=== PATIENT | female | born 1940 | race Caucasian/White ===

== ENCOUNTER 2017-09-01 11:46 | Inpatient (IN) | payer OTHER, MEDICARE ==
[~2017-09-01] VITALS: Ht 160 cm; Wt 96.8 kg
--- NOTE | 2017-09-01 12:52 | ED DYSPNEA/ASTHMA COMPLAINT ---
History of Present Illness General Chief Complaint: Dyspnea (COPD, CHF, Other) Stated Complaint: SOB Source: patient, family, old records Exam Limitations: no limitations Vital Signs & Intake/Output Vital Signs & Intake/Output Vital Signs Date Time Temp Pulse Resp B/P B/P Pulse O2 O2 Flow FiO2 Mean Ox Delivery Rate 09/01 1441 97 Nasal 2.0L Cannula 09/01 1415 69 20 140/68 96 Room Air 09/01 1216 98.8 73 20 144/74 94 Room Air Allergies Coded Allergies: NO KNOWN ALLERGIES (12/22/10) Triage Note: SIB DR HINTON FOR SOB ON AND OFF X 1 WEEK. BLE EDEMA WHICH IS WORSE TODAY. PT THINKS SHE HAS A UTI ALSO. PT HAS HX OF DOUBLE BYPASS X 2 WITH STENTS. STATES SHE WEARS A NTG PATCH 12 HRS ON, 12 HRS OFF Triage Nurses Notes Reviewed? yes Onset: Gradual Duration: day(s): Timing: recent history Severity: moderate Activities at Onset: activity HPI: 76YO FEMALE with hx of CAD s/p CABG on Brillinta, CHF, HTN presents to ED sent in by Dr. Mcguire for dyspnea x 1 week. Patient states that dyspnea is worse with exertion, after she walks down the stairs she immediately has to sit down in the chair. Symptoms are also worse when she talks or when she tries to lay flat. The patient uses inclined bed with 3 pillows at baseline. Patient states that for the past 2 nights she has been unable to sleep due to her dyspnea. Patient also reports increasing swelling to bilateral lower extremities. Patient took extra Lasix dose last night however no relief of her symptoms. Patient reports dysuria beginning this morning. Patient had a recent cardiac catheterization in May and it was found that she had a vessel 70% occluded however no stent was placed. Patient has been using Nitro patch 12 hours on/12 hours off since stenting. Patient reports no chest pain at that time, no chest pain currently. Patient states that over the past few weeks she has had a "head cold". She reports dry cough and congestion. The patient denies fevers, chills , abdominal pain, vomiting, hemoptysis. (Pili FIORE,Rea Covington) Reconcile Medications Allopurinol 300 MG TABLET 1 TAB PO DAILY GOUT (Reported) Amlodipine Besylate (Norvasc) 10 MG TABLET 1 TAB PO DAILY HEART (Reported) Aspirin (Aspirin*) 81 MG TAB.CHEW 1 TAB PO DAILY HEART HEALTH (Reported) Atorvastatin Calcium (Lipitor) 20 MG TABLET 1 TAB PO QPM CHOLESTEROL ( Reported) Cholecalciferol (Vitamin D3) (Vitamin D) 2,000 UNIT TABLET 2 TAB PO DAILY VITAMIN SUPPORT (Reported) Cyanocobalamin (Vitamin B-12) 1,000 MCG TABLET 1 TAB PO DAILY VITAMIN SUPPORT (Reported) Furosemide 20 MG TABLET 1 TAB PO DAILY WATER RETENTION (Reported) Gabapentin 300 MG CAPSULE 1 CAP PO BID UNKNOWN (Reported) Hydrocodone/Acetaminophen (Hydrocodon-Acetaminoph 7.5-325) 7.5 MG-325 MG TABLET 1 TAB PO TIDPRN PRN PAIN (Reported) Loperamide HCl (Imodium A-D) 2 MG TABLET 1 CAP PO DAILY PRN GI (Reported) Metformin HCl 1,000 MG TABLET 1 TAB PO BID DIABETES (Reported) Metoprolol Tartrate 100 MG TABLET 1 TAB PO BID HEART (Reported) Nitroglycerin (Nitrostat) 0.4 MG TAB.SUBL 1 TAB SL DAILY PRN HEART (Reported) 1st sign of attack; may repeat every 5 minutes until relief; if pain persists after 3 tablets in 15 minutes, prompt medical att Nitroglycerin (Minitran) 0.4 MG/HOUR PATCH.TD24 1 PAT TOP DAILY HEART ( Reported) [place]-3 Fatty Acids/Fish Oil (Fish Oil 1,000 MG Capsule) 340 MG-1,000 MG CAPSULE 2 CAP PO DAILY SUPPLEMENT (Reported) Ramipril (Altace) 10 MG CAPSULE 1 CAP PO BID UNKNOWN (Reported) Ticagrelor (Brilinta) 90 MG TABLET 1 TAB PO BID BLOOD THINNER (Reported) (Ade LOPEZ,Nacho Dennis) Past History Travel History Traveled to [place] past 21 day No Medical History Any Pertinent Medical History? 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 No (Pili FIORE,Rea Covington) Review of Systems Review of Systems Constitutional: Reports: no symptoms. EENTM: Reports: see HPI. Respiratory: Reports: see HPI. Cardiovascular: Reports: see HPI. GI: Reports: no symptoms. Genitourinary: Reports: see HPI. Musculoskeletal: Reports: no symptoms. Skin: Reports: no symptoms. Neurological/Psychological: Reports: no symptoms. Hematologic/Endocrine: Reports: no symptoms. Immunologic/Allergic: Reports: no symptoms. All Other Systems: Reviewed and Negative (Pili FIORE,Rea Covington) Physical Exam Physical Exam General Appearance: well developed/nourished, no apparent distress, alert, awake Head: atraumatic, normal appearance Eyes: Bilateral: normal appearance. Ears, Nose, Throat: hearing grossly normal Neck: normal inspection, supple, full range of motion Respiratory: mildly diminished breath sounds posterior lung shell Cardiovascular: regular rate/rhythm, normal peripheral pulses Peripheral Pulses: 2+ radial (R), 2+ radial (L) Gastrointestinal: normal bowel sounds, soft, non-tender, no organomegaly Extremities: 2-3+ pitting edema bilateral lower extremities Neurologic/Psych: awake, alert, oriented x 3 Skin: intact, normal color, warm/dry Core Measures ACS in differential dx? Yes CVA/TIA Diagnosis No Sepsis Present: No Sepsis Focused Exam Completed? No (Pili FIORE,Rea Covington) Progress Differential Diagnosis: asthma, AMI, bronchitis, CHF, COPD, pericarditis, pulmonary embolism, pneumonia, pneumothorax, unstable angina Diagnostic Imaging: Viewed by Me: Radiology Read. Discussed w/RAD: Radiology Read. CXR Impression: PATIENT: NIELS SYLVESTER PRESENT AGE : 76 PATIENT ACCOUNT NO: [id number] : 41 LOCATION: [facility] ORDERING PHYSICIAN: Rea FIORE SERVICE DATE: 09/01/17 EXAM TYPE: RAD - XRY-CHEST XRAY, TWO VIEWS PA AND LATERAL CHEST RADIOGRAPH CLINICAL INFORMATION: Dyspnea COMPARISON: Chest x-ray 07/22/2011 TECHNIQUE: 2 views of the chest were obtained. FINDINGS: Median sternotomy wires and multiple surgical clips are again noted. Low lung volumes and central vascular congestion without overt edema. Lung bases are obscured by overlying soft tissues on the frontal view with no true airspace disease seen on the lateral view. No pneumothorax. Cardiac silhouette is enlarged and unchanged. IMPRESSION: Lung bases are obscured by overlying soft tissue on the frontal view with no definite focal airspace opacity seen on the lateral view. Low lung volumes and central vascular congestion without overt edema. Stable enlargement of the cardiac silhouette and chronic postsurgical changes. DICTATED BY: Nacho Dye MD DATE/TIME DICTATED :09/01/171403 MASTER ESTHETICIAN:LINDA DATE/TIME TRANSCRIBED:09/01/171403 CONFIDENTIAL, DO NOT COPY WITHOUT APPROPRIATE AUTHORIZATION. < Electronically signed in Other Vendor System> SIGNED BY: Nacho Dye MD 09/01/17 1411 Initial ED EKG: sinus rhythm @72bpm, inverted t waves lateral leads (Pili FIORE,Rea Covington) Plan of Care: Orders Procedure Date/time Status Heart Healthy Diet 09/01 D Active URINALYSIS 09/01 1242 Complete TROPONIN LEVEL 09/01 1210 Complete COMPREHENSIVE METABOLIC PANEL 09/01 1210 Complete CBC WITHOUT DIFFERENTIAL 09/01 1209 Complete B-TYPE NATRIURETIC PEP (BNP) 09/01 121 Complete EKG 09/01 1210 Active Laboratory Tests 09/01/17 1332: Anion Gap 17 H, Estimated GFR > 60, BUN/Creatinine Ratio 17.1, Glucose 107 H, Calcium 9.9, Total Bilirubin 1.2, AST 18, ALT 21, Alkaline Phosphatase 109, Troponin I < 0.01, Hae-K-Qreknjihvlh Pept 1350 H, Total Protein 8.2, Albumin 4.6, Globulin 3.6, Albumin/Globulin Ratio 1.3, CBC w Diff NO MAN DIFF REQ, RBC 3.58 L, MCV 92.2, MCH 29.9, MCHC 32.4 L, RDW 16.1 H, MPV 8.9, Gran % 78.0 H, Lymphocytes % 14.9 L, Monocytes % 5.7, Eosinophils % 0.7, Basophils % 0.7, Absolute Granulocytes 9.5 H, Absolute Lymphocytes 1.8, Absolute Monocytes 0.7 H, Absolute Eosinophils 0.1, Absolute Basophils 0.1 09/01/17 1253: Urine Color YEL, Urine Clarity CLEAR, Urine pH 6.5, Ur Specific Snook 1.010, Urine Protein NEG, Urine Ketones NEG, Urine Nitrite NEG, Urine Bilirubin NEG, Urine Urobilinogen 0.2, Ur Leukocyte Esterase SMALL H, Ur Microscopic SEDIMENT EXAMINED, Urine WBC 5-10 H, Ur Epithelial Cells RARE, Urine Bacteria FEW H, Urine Hemoglobin NEG, Urine Glucose NEG Chest x-ray shows congestion however no significant edema. Patient's labs show mildly elevated BNP. The patient is ambulated her oxygen level desaturates to 70s. Patient is not on home O2. Based on these findings she will require hospital admission for IV Lasix. 3:07 PM - spoke with Dr. Mcguire regarding this patient, he agrees with plan for hospital admission and IV Lasix. Case management recommend follow admission. Patient requires cardiology consult , telemetry monitoring, repeat labs, supplemental oxygen, IV Lasix. Dr. Booker present to see and evaluate the patient. Dr. Booker spoke with Dr. Butcher regarding telemetry admisison. (Pili FIORE,Rea Covington) Comments: 09/01/2017 1:52:05 PM patient's nurse has reported to me that the patient went to the bathroom without her oxygen and upon return was severely dyspneic with an oxygen saturation 79%. 09/01/2017 3:31:08 PM Patient's case discussed with Dr. Butcher. (Ade LOPEZ,Nacho Dennis) Departure Departure Disposition: STILL A PATIENT Condition: Stable Clinical Impression Primary Impression: CHF exacerbation Qualifiers: Heart failure type: unspecified Qualified Code: I50.9 - Heart failure, unspecified Referrals: Ari Gr MD (PCP/Family) Departure Forms: Customer Survey General Discharge Information Admission Note Spoke With: Saray Butcher MD Documentation of Exam: Documentation of any treatments & extenuating circumstances including Concerns Regarding Discharge (functional status, medication knowledge or non-compliance, living conditions, etc.) that warrant an admission rather than observation: [ Acute CHF exacerbation requiring IV Lasix, cardiology consult, repeat labs, telemetry monitoring, desaturation with ambulation requiring supplemental oxygen , premature discharge medically unsafe] (Rea Cutler) PA/OUTBOARD MOTOR TESTER Co-Sign Statement Statement: ED Attending supervision documentation- [X] I saw and evaluated the patient. I have also reviewed all the pertinent lab results and diagnostic results. I agree with the findings and the plan of care as documented in the PA's/OUTBOARD MOTOR TESTER's documentation. Patient presents for evaluation of worsening shortness of breath over the past few nights. Physical examination reveals good bilateral air entry and no wheezes rales or rhonchi. Patient does have 2+ bilateral lower extremity pitting edema. [] I have reviewed the ED Record and agree with the PA's/OUTBOARD MOTOR TESTER's documentation. [] Additions or exceptions (if any) to the PAs/OUTBOARD MOTOR TESTER's note and plan are summarized below: [] (Nacho Booker MD) Critical Care Note Critical Care Note Critical Care Time: 30-74 min (Nacho Booker MD)
[2017-09-01] MEDS ORDERED: METOPROLOL TAR100 M1 PO (13:13)
[2017-09-01] MEDS ORDERED: ALTACE10 M2 PO (13:13)
[2017-09-01] MEDS ORDERED: BRILINTA90 M1 PO (13:13)
[2017-09-01] MEDS ORDERED: METFORMIN HCL1000 M1 PO (13:14)
[2017-09-01] MEDS ORDERED: LIPITOR20 M2 PO (13:14)
[2017-09-01] MEDS ORDERED: NORVASC10 M1 PO (13:14)
[2017-09-01] MEDS ORDERED: ASPIRIN81 M4 PO (13:15)
[2017-09-01] MEDS ORDERED: FUROSEMIDE20 M1 PO (13:15)
[2017-09-01] MEDS ORDERED: ALLOPURINOL300 M1 PO (13:15)
[2017-09-01] MEDS ORDERED: NITROSTAT0.4 M1 SL (13:16)
[2017-09-01] MEDS ORDERED: MINITRAN1 EAC2 TOP (13:16)
[2017-09-01] MEDS ORDERED: VITAMIN B-121000 MC3 PO (13:17)
[2017-09-01] MEDS ORDERED: FISH OIL 1,0001 EACH PO (13:17)
[2017-09-01] MEDS ORDERED: VITAMIN D2000 UNI1 PO (13:18)
[2017-09-01] MEDS ORDERED: GABAPENTIN300 M2 PO (13:18)
[2017-09-01] MEDS ORDERED: IMODIUM A-D2 M1 PO (13:19)
[2017-09-01] MEDS ORDERED: HYDROCODON-ACE1 EAC3 PO (13:19)
[2017-09-01 13:45] LABS: ABSOLUTE BASOPHIL COUNT 0.1 /CUMM (0.0-0.2); ABSOLUTE EOSINOPHIL COUNT 0.1 /CUMM (0.0-0.7); ABSOLUTE GRANULOCYTE CT 9.5 /CUMM (1.4-6.5); ABSOLUTE LYMPH COUNT 1.8 /CUMM (1.2-3.4); ABSOLUTE MONOCYTE COUNT 0.7 /CUMM (0.10-0.60); BASOPHIL % 0.7 % (0.0-2.0); EOSINOPHIL % 0.7 % (0-5); MEAN CORPUSCULAR HGB 29.9 PG (27.0-31.0); MEAN CORPUSCULAR HGB CONC 32.4 G/DL (33.0-37.0); MEAN CORPUSCULAR VOLUME 92.2 FL (81.0-99.0); MEAN PLATELET VOLUME 8.9 FL (7.4-10.4); PLATELET COUNT 323 /CUMM (130-400); RBC DISTRIBUTION WIDTH 16.1 % (11.5-14.5); RED BLOOD CELL CT 3.58 /CUMM (4.20-5.40); WHITE BLOOD CELL COUNT 12.2 /CUMM (4.8-10.8)
--- NOTE | 2017-09-01 14:11 | RADIOLOGY REPORT ---
PA AND LATERAL CHEST RADIOGRAPH CLINICAL INFORMATION: Dyspnea COMPARISON: Chest x-ray 07/22/2011 TECHNIQUE: 2 views of the chest were obtained. FINDINGS: Median sternotomy wires and multiple surgical clips are again noted. Low lung volumes and central vascular congestion without overt edema. Lung bases are obscured by overlying soft tissues on the frontal view with no true airspace disease seen on the lateral view. No pneumothorax. Cardiac silhouette is enlarged and unchanged. IMPRESSION: Lung bases are obscured by overlying soft tissue on the frontal view with no definite focal airspace opacity seen on the lateral view. Low lung volumes and central vascular congestion without overt edema. Stable enlargement of the cardiac silhouette and chronic postsurgical changes.
--- NOTE | 2017-09-01 15:37 | History & Physical ---
Cabrera Fraser MD 09/01/17 1536: General Information and HPI MD Statement: I have seen and personally examined NIELS SYLVESTER and documented this H&P. The patient is a 76 year old F who presented with a patient stated chief complaint of [dyspnea on exertion, lower extremity edema]. Source of Information: patient, family Exam Limitations: no limitations History of Present Illness: Patient is a 76-year-old female with a PMH significant for CAD status post multiple CABGs and PCIs with stent placement, significant cardiac family history , HTN, IBS, chronic back pain, borderline diabetes mellitus, who presents complaining of worsening dyspnea on exertion, and leg swelling. Patient reports that approximately one week before Easter she was having symptoms indicative of a URI with nonproductive cough, rhinorrhea and postnasal drip. The symptoms abated however in the ensuing 2 weeks she noticed significant fatigue, worsening dyspnea on exertion progressing to dyspnea at rest. Chest noted approximately 1 week of worsening of her chronic lower extremity edema for which she is on Lasix , she took an extra dose of Lasix which did not relieve this. Patient's dyspnea progressed to the point that she could not walk up a flight of stairs approximately one week ago and she has had episodes of PND and orthopnea, she normally sleeps on approximately 2-3 pillows however over the past couple of days she is needed to elevate the head of her bed and use multiple pillows. She has been unable to sleep due to shortness of breath over the past 2 days and was recommended to come to the ED by Dr. Mcguire's office. 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 Home Who Do You Live With? spouse Services at Home: None Primary Language: Fijian Smoking Status: Never Smoked ETOH Use: denies use Illicit Drug Use: denies illicit drug use Functional Ability ADLs Independent: dressing, eating, toileting, bathing. Ambulation: independent IADLs Independent: shopping, housework, finances, food prep, telephone, transportation , medication admin. Review of Systems Review of Systems Constitutional: Reports: weakness. Denies: chills, fever. EENTM: Reports: no symptoms. Cardiovascular: Reports: orthopena, peripheral edema. Denies: chest pain, palpitations. Respiratory: Reports: short of breath. Denies: cough, sputum production, wheezing. GI: Reports: diarrhea (chronic). Genitourinary: Reports: no symptoms. Musculoskeletal: Reports: no symptoms. Skin: Reports: no symptoms. Neurological/Psychological: Reports: no symptoms. Exam & Diagnostic Data Last 24 Hrs of Vital Signs/I&O Vital Signs Date Time Temp Pulse Resp B/P B/P Pulse O2 O2 Flow FiO2 Mean Ox Delivery Rate 09/01 1441 97 Nasal 2.0L Cannula 09/01 1415 69 20 140/68 96 Room Air 09/01 1216 98.8 73 20 144/74 94 Room Air Intake & Output 09/01 1600 09/01 0800 09/01 0000 Intake Total Output Total 150 Balance -150 Output, Urine 150 Patient 220 lb Weight Weight Reported by Patient Measurement Method Physical Exam General Appearance Alert, Oriented X3, Cooperative, No Acute Distress Skin Temp/Moisture Exam: Warm/Dry Neck JVD + Cardiovascular Regular Rate, Normal S1, Normal S2 Lungs minimal crackles at the R lung base Abdomen Normal Bowel Sounds, Soft, No Tenderness Neurological Normal Speech, Sensation Intact, Cranial Nerves 3-12 NL Extremities 1+ pitting edema of the distal LEs bilaterally Vascular Normal Pulses, Pulses Symmetrical Last 24 Hrs of Labs/Carlo: Laboratory Tests 09/01/17 1332: Anion Gap 17 H, Estimated GFR > 60, BUN/Creatinine Ratio 17.1, Glucose 107 H, Hemoglobin A1c Pending, Calcium 9.9, Magnesium 1.4 L, Total Bilirubin 1.2, AST 18, ALT 21, Alkaline Phosphatase 109, Troponin I < 0.01, Cva-L-Makfzmndczu Pept 1350 H, Total Protein 8.2, Albumin 4.6, Globulin 3.6, Albumin/Globulin Ratio 1.3, TSH 1.150, D-Dimer High Sensitivty 1032 H, CBC w Diff NO MAN DIFF REQ, RBC 3.58 L, MCV 92.2, MCH 29.9, MCHC 32.4 L, RDW 16.1 H, MPV 8.9, Gran % 78.0 H, Lymphocytes % 14.9 L, Monocytes % 5.7, Eosinophils % 0.7, Basophils % 0.7, Absolute Granulocytes 9.5 H, Absolute Lymphocytes 1.8, Absolute Monocytes 0.7 H, Absolute Eosinophils 0.1, Absolute Basophils 0.1 09/01/17 1253: Urine Color YEL, Urine Clarity CLEAR, Urine pH 6.5, Ur Specific [place] 1.010, Urine Protein NEG, Urine Ketones NEG, Urine Nitrite NEG, Urine Bilirubin NEG, Urine Urobilinogen 0.2, Ur Leukocyte Esterase SMALL H, Ur Microscopic SEDIMENT EXAMINED, Urine WBC 5-10 H, Ur Epithelial Cells RARE, Urine Bacteria FEW H, Urine Hemoglobin NEG, Urine Glucose NEG Diagnostic Data EKG Results HR 72, inverted T waves in multiple leads no previous EKG for comparison, QTc 430 CXR Results Median sternotomy wires and multiple surgical clips are again noted. Low lung volumes and central vascular congestion without overt edema. Lung bases are obscured by overlying soft tissues on the frontal view with no true airspace disease seen on the lateral view. No pneumothorax. Cardiac silhouette is enlarged and unchanged. IMPRESSION: Lung bases are obscured by overlying soft tissue on the frontal view with no definite focal airspace opacity seen on the lateral view. Low lung volumes and central vascular congestion without overt edema. Stable enlargement of the cardiac silhouette and chronic postsurgical changes. Assessment/Plan Assessment: Patient is a 76-year-old female with a PMH significant for CAD status post multiple CABGs and PCIs with stent placement, significant cardiac family history , HTN, IBS, chronic back pain, borderline diabetes mellitus, who presents complaining of worsening dyspnea on exertion, and leg swelling. Vital signs on presentation: T 98.8, lipase 73, RR 20, BP 144/74, pulse ox 94% on room air, patient desaturated to 92% on room air and was started on supplemental O2 nasal cannula and subsequently improved to 96% Labs: WBC 12.2, H/H 10.7/33, platelets 53, magnesium 1.4, potassium 3.7, proBNP 1350, troponin <0.01, d-dimer 1032 UA: Small LE, WBC and bacteria present Problem list #Dyspnea, possible CHF exacerbation, PE cannot be ruled out #Hypomagnesemia, hypokalemia #Inverted T waves on EKG, no old EKG for comparison #Chronic medical problems Plan -Admit to telemetry -Continuous telemetry monitoring -Rule out ACS with serial troponins and EKGs -IV Lasix -Strict I's and O's and daily weights -Lower extremity Doppler and CTA chest to rule out DVT/PE -Wean off of supplemental O2 as tolerated -Cardiology consult placed with Dr. Mcguire, will follow up recommendations -Continue home medications Diet: Diabetic diet, sodium restriction DVT prophylaxis #subcutaneous heparin CODE STATUS: Full code As Ranked By This Provider Problem List: 1. Dyspnea Core Measures/Misc (02/06) Acute Coronary Syndrome ACS Diagnosis: No Congestive Heart Failure Congestive Heart Failure Diagnosis Yes Cerebrovascular Accident CVA/TIA Diagnosis: No VTE (View Protocol) VTE Risk Factors Age>40 No Mechanical VTE Prophylaxis d/t N/A MechProphylax Ordered No VTE Pharm Prophylaxis d/t NA PharmProphylax ordered Sepsis (View protocol) Sepsis Present: No Loni LOPEZ,[facility] 09/01/17 1543: General Information and HPI Allergies/Medications Home Med list Allopurinol 300 MG TABLET 1 TAB PO DAILY GOUT (Reported) Amlodipine Besylate (Norvasc) 10 MG TABLET 1 TAB PO DAILY HEART (Reported) Aspirin (Aspirin*) 81 MG TAB.CHEW 1 TAB PO DAILY HEART HEALTH (Reported) Atorvastatin Calcium (Lipitor) 20 MG TABLET 1 TAB PO QPM CHOLESTEROL ( Reported) Cholecalciferol (Vitamin D3) (Vitamin D) 2,000 UNIT TABLET 2 TAB PO DAILY VITAMIN SUPPORT (Reported) Cyanocobalamin (Vitamin B-12) 1,000 MCG TABLET 1 TAB PO DAILY VITAMIN SUPPORT (Reported) Furosemide 40 MG TABLET 1 TAB PO BID CHF Gabapentin 300 MG CAPSULE 1 CAP PO BID UNKNOWN (Reported) Hydrocodone/Acetaminophen (Hydrocodon-Acetaminoph 7.5-325) 7.5 MG-325 MG TABLET 1 TAB PO TIDPRN PRN PAIN (Reported) Loperamide HCl (Imodium A-D) 2 MG TABLET 1 CAP PO DAILY PRN GI (Reported) Metformin HCl 1,000 MG TABLET 1 TAB PO BID DIABETES (Reported) Metoprolol Tartrate 100 MG TABLET 1 TAB PO BID HEART (Reported) Nitroglycerin (Nitrostat) 0.4 MG TAB.SUBL 1 TAB SL DAILY PRN HEART (Reported) 1st sign of attack; may repeat every 5 minutes until relief; if pain persists after 3 tablets in 15 minutes, prompt medical att Nitroglycerin (Minitran) 0.4 MG/HOUR PATCH.TD24 1 PAT TOP DAILY HEART ( Reported) [place]-3 Fatty Acids/Fish Oil (Fish Oil 1,000 MG Capsule) 340 MG-1,000 MG CAPSULE 2 CAP PO DAILY SUPPLEMENT (Reported) Ramipril (Altace) 10 MG CAPSULE 1 CAP PO BID UNKNOWN (Reported) Ticagrelor (Brilinta) 90 MG TABLET 1 TAB PO BID BLOOD THINNER (Reported) Resident Review Statement Resident Statement: examined this patient, discussed with financial services internship Other Findings: Alec Sylvester is a 76-year-old female with a PMH significant for CAD status post multiple CABGs and PCIs with stent placement, significant cardiac family history , HTN, IBS, chronic back pain, borderline diabetes mellitus who presented to the emergency department complaining of worsening lower extremity edema and dyspnea on exertion which has continued to get worse over the last few weeks. Patient states that her symptoms began around the vacation. She may have been exposed to some ill contacts and endorsed an upper respiratory infection with rhinorrhea. Over the following 2 weeks she has continued to notice dyspnea on exertion as well as significant fatigue. Patient attempted to take an extra dose of Lasix however symptoms are not relieved. Dyspnea has progressively point that she is unable to walk up a flight of stairs. Patient is unable to lie flat and normally uses multiple pillows to prop her up. At the time of clinical interaction she denied any fever, chills, nausea, vomiting. Primary care physician is Ari Gr MD. Her gifted program teacher is Dr. Mcguire. R See Above Exam: T: 98.8. OK 73. RR 20 BP 144/74 94 % on RA General Appearance: well developed/nourished, no apparent distress, alert, awake Head: atraumatic, normal appearance Eyes: Bilateral: normal appearance. Ears, Nose, Throat: hearing grossly normal Neck: normal inspection, supple, full range of motion Respiratory: Distant breath sounds. Cardiovascular: regular rate/rhythm, normal peripheral pulses Peripheral Pulses: 2+ radial (R), 2+ radial (L) Gastrointestinal: normal bowel sounds, soft, non-tender, no organomegaly Extremities: 3+ pitting edema bilateral lower extremities Neurologic/Psych: awake, alert, oriented x 3 Skin: intact, normal color, warm/dry Labs As Above Imaging: As Above A/P Ms Sylvester is a 76-year-old female with a PMH significant for CAD status post multiple CABGs and PCIs with stent placement, significant cardiac family history , HTN, IBS, chronic back pain, borderline diabetes mellitus who presented to the emergency department complaining of worsening lower extremity edema and dyspnea on exertion which has continued to get worse over the last few weeks. Worsening ESTES and Hypoxia query CHF rule out PE. Electrolyte derangements. EKG changes. Chronic medical problems. Admit to telemetry. Monitor ins and outs and daily weights. Continue Lasix IV 20 mg twice a day. Monitor renal function daily. TSH, magnesium, lipid panel. Rule out ACS with serial roponins EKG. May consider repeating chest x-ray in a.m. Incentive spirometer. D-dimer. If elevated may consider ruling out any VTE (DVT and PE), with LE doppler and CTA Defer to Cardiology for Echocardiogram in a.m. Assess left ventricular function as well as estimated PA pressures. Consideration for stress test in a.m. as per cardiology. NovoLog sliding scale. Consistent carbohydrate diet, limit sodium DVT prophylaxis with Heparin Patient is a FC Guadalupe LOPEZ,[place] 09/01/17 1740: Attending MD Review Statement Attending Statement Attending MD Statement: examined this patient, discuss w/resident/PA/DECK BUILDER, agreed w/resident/PA/DECK BUILDER, discussed with family, reviewed EMR data (avail), discussed with nursing, amended to note Attending Assessment/Plan: Patient is a very pleasant 76-year-old female with an extensive cardiac history. She has coronary artery disease and is status post bypass surgery status post bypass surgery 3 in the past. The second procedure required revision the following year. She is also status post cardiac stent placement after the third procedure. Earlier this year she had another cardiac catheterization following a positive stress test. She was found to have obstructive disease that was not amenable to percutaneous intervention. Decision was made to manage patient medically. She denied having chest pain but admits to having dyspnea on exertion. She was prescribed nitroglycerin patch by her primary gifted program teacher with improvement of her symptoms. Patient reports that within the past few weeks her symptoms of shortness of breath particularly with exertion have persisted despite use of nitroglycerin patch. She has been getting progressively weaker. In the past week she has noted bilateral lower extremity swelling. She eventually came to the hospital for evaluation. She denies chest pain. Denies palpitations. Denies productive cough. She does admit to orthopnea. She admits to leg cramping but attributes this to chronic low back pain radiating down her legs secondary to degenerative joint disease. She apparently arrived in the emergency room hemodynamically stable. She was saturating 94-96% on room air. She was afebrile. ER notes show that she had diminished breath sounds in lung bases. Chest x-ray was done and showed low lung volumes and central vascular congestion without overt edema. Her BNP was elevated at 1350. She received Lasix 20 mg in the emergency room and patient reported feeling much better. At this point she was referred to the inpatient medical service after contacting her gifted program teacher for further management. When the medical team evaluated the patient in the emergency room we found her resting comfortably not in any acute distress. She reports feeling much better compared to presentation. She was not in any respiratory distress. She was conversant appropriately. On examination heart sounds are regular with no audible murmur. She had adequate entry bilaterally with no added sounds. Abdomen is soft and normal with normal bowel sounds. She did have 1+ pitting edema bilaterally. Her complaints appear to be out of proportion to her physical exam findings so we requested a d-dimer to be added to her labs. D- dimer returned elevated at 1032. Her EKG did show normal sinus rhythm but with diffuse inverted T waves. We have no EKG here for comparison. Laboratory data shows mildly elevated white cell count of 12.2. She has a mild anemia with hemoglobin of 10.7 however this is her baseline. Her creatinine is within normal limits. Problems: 1. Acute on chronic dyspnea. 2. Coronary artery disease. 3. Abnormal EKG. Plan: -Patient's presentation and particularly had improvement following a low dose of Lasix appear consistent with congestive heart failure episode however her elevated d-dimer and lack of overt volume overload on clinical exam there is concern for the diagnosis such as pulmonary embolism. -Obtain CT angiogram to rule out pulmonary embolism and further investigated pulmonary parenchyma. -Continue diuresis with Lasix 20 mg IV twice daily. -Monitor patient on the telemetry unit. Trend cardiac enzymes. Repeat EKG in the a.m. -Follow-up with patient's cardiology service prior to ordering an echocardiogram as one may have been done recently. -Discontinue oxygen supplementation if not required. -DVT prophylaxis with subcutaneous heparin.
--- NOTE | 2017-09-01 17:41 | Admission Certification ---
Admission Certification Certification Statement - As attending physician, I certify that at the time of - admission, based on clinical presentation, severity of - symptoms, need for further diagnostic testing and - therapeutic interventions, and risk of adverse outcomes - without in-hospital treatment, in my clinical assessment, - this patient requires an acute hospital stay for a minimum - of two nights or longer. I have also considered psychsocial - factors such as support system, advanced age, financial - issues, cognitive issues, and failed out-patient treatments, - past re-admission history, safety of patient, and lack of - compliance as applicable. Specific rationale supporting this admission is: Patient requires hospitalization for further evaluation of the cause of her shortness of breath. She is requiring oxygen supplementation
--- NOTE | 2017-09-01 18:41 | Cons- Cardiology ---
General Information and HPI Consulting Request Date of Consult: 09/01/17 Requested By: Saray Butcher MD Reason for Consult: Shortness of breath. Source of Information: patient, family, old records Exam Limitations: no limitations History of Present Illness: Mrs. Rosa Maria Jones is a 76-year-old female with a history of morbid obesity, hypothyroidism, chronic obstructive pulmonary disease, hypertension, dyslipidemia, diabetes mellitus, and coronary artery disease who presented from home with several day complaint of progressive shortness of breath with orthopnea, paroxysmal nocturnal dyspnea, weight gain, and bilateral lower extremity edema. She denies experiencing any chest discomfort, palpitations, dry cough, etc. She had her reported having a "viral illness" over the past couple of weeks, but denied any no complaints of fever, chills, nausea, vomiting, diarrhea , etc. She also admits to dietary noncompliance. She had a spiral him for Easter followed by left over through several days, canned vegetables, etc. Initially, anginal complaints, her risk equivalent and multiple risk factors for coronary artery disease prompted cardiac catheterization in March 1999 at which time she was found to have a high-grade stenosis in her RCA. Brought back for attempted angioplasty which was unsuccessful. As a result of this, she subsequently had a single vessel coronary artery bypass graft placed her RCA off cardiopulmonary bypass the following month. Further anginal complaints occurred in April 2000 which prompted repeat cardiac catheterization that revealed patent SVG to her RCA and a new high-grade LCx marginal stenosis for which she underwent successful PCI/BMS (S670) A positive stress test November 1999 9T repeat cardiac catheterization and redo coronary artery bypass grafting with a GARZA to her LAD and SVG to her LCx OM branch. Dyspnea on exertion with left cardiac changes went to another cardiac catheterization in December 2010 that revealed an atretic GARZA graft to her LAD and occluded SVG to her LCx marginal branch. The LM had a 50-60% distal stenosis. There was also a 75% ostial LAD, 50% mid vessel stenosis in the second DX branch, and a 70% ostial stenosis in the LCx with patency at the site of the previously placed stent. These findings prompted a third CABG on 2010 with a SVG to her LAD and LCx marginal branches. Her course was complicated by NSVT, SVT, and transient atrial fibrillation. Anginal complaints in September 2014 with a repeat cardiac catheterization on 2014 that revealed: LM-90% distal stenosis, LAD-70% ostial stenosis, 90% mid vessel stenosis with competitive flow from the SVG to the LAD, LCx-95% ostial stenosis, mid vessel patency at the previous stent site, RCA-dominant and 100% occluded, SVG to LAD patent with retrograde flow, SVG to RCA patent, SVG to OM 100% occlusion. Given these findings PCI/PAULINE (Resolute) was placed in the LM and ostial LCx lesions with 0% residual stenosis and KAROL-3 flow. When she was seen on 04/26/2017 she reported increasing fatigue and shortness of breath for the past couple of months which prompted yet another cardiac catheterization on 05/25/2017 that revealed: LM-patent, LAD-70% ostial stenosis, LCx-deep percent proximal in-stent stenosis, RCA-dominant with large patent RV marginal branch and proximal occlusion before the take off of the PDA, SVG to OM -occluded with visualized stump, SVG to RCA-patent with good distal runoff, SVG to LAD-patent with good distal runoff, LV gram-EF of 60%. Due to the close proximity of the 70% ostial LAD stenosis with a patent SVG to the distal LAD and the 50% LCx lesion PCI was not pursued given concerns about pushing the LAD lesion into the LCx and medical management was recommended. Long-acting nitrates were added to her cardiac regimen. When she was last seen in the office on 06/02/2017 she was feeling reasonably well without any anginal complaints or worsening of her chronic dyspnea on exertion. Allergies/Medications Allergies: Coded Allergies: NO KNOWN ALLERGIES (12/22/10) Home Med List: Allopurinol 300 MG TABLET 1 TAB PO DAILY GOUT (Reported) Amlodipine Besylate (Norvasc) 10 MG TABLET 1 TAB PO DAILY HEART (Reported) Aspirin (Aspirin*) 81 MG TAB.CHEW 1 TAB PO DAILY HEART HEALTH (Reported) Atorvastatin Calcium (Lipitor) 20 MG TABLET 1 TAB PO QPM CHOLESTEROL ( Reported) Cholecalciferol (Vitamin D3) (Vitamin D) 2,000 UNIT TABLET 2 TAB PO DAILY VITAMIN SUPPORT (Reported) Cyanocobalamin (Vitamin B-12) 1,000 MCG TABLET 1 TAB PO DAILY VITAMIN SUPPORT (Reported) Furosemide 20 MG TABLET 1 TAB PO DAILY WATER RETENTION (Reported) Gabapentin 300 MG CAPSULE 1 CAP PO BID UNKNOWN (Reported) Hydrocodone/Acetaminophen (Hydrocodon-Acetaminoph 7.5-325) 7.5 MG-325 MG TABLET 1 TAB PO TIDPRN PRN PAIN (Reported) Loperamide HCl (Imodium A-D) 2 MG TABLET 1 CAP PO DAILY PRN GI (Reported) Metformin HCl 1,000 MG TABLET 1 TAB PO BID DIABETES (Reported) Metoprolol Tartrate 100 MG TABLET 1 TAB PO BID HEART (Reported) Nitroglycerin (Nitrostat) 0.4 MG TAB.SUBL 1 TAB SL DAILY PRN HEART (Reported) 1st sign of attack; may repeat every 5 minutes until relief; if pain persists after 3 tablets in 15 minutes, prompt medical att Nitroglycerin (Minitran) 0.4 MG/HOUR PATCH.TD24 1 PAT TOP DAILY HEART ( Reported) [place]-3 Fatty Acids/Fish Oil (Fish Oil 1,000 MG Capsule) 340 MG-1,000 MG CAPSULE 2 CAP PO DAILY SUPPLEMENT (Reported) Ramipril (Altace) 10 MG CAPSULE 1 CAP PO BID UNKNOWN (Reported) Ticagrelor (Brilinta) 90 MG TABLET 1 TAB PO BID BLOOD THINNER (Reported) Review of Systems Review of Systems: A 14 point system review was obtained and was noncontributory, other than as above. 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 Surgical History Surgical History: CABG Family History Relations & Conditions If Any: SON FH: NM (myocardial infarction) SISTER FH: NM (myocardial infarction) FATHER FH: throat cancer Psychosocial History ETOH Use: denies use Illicit Drug Use: denies illicit drug use Exam & Diagnostic Data Vital Signs and I&O Vital Signs Date Time Temp Pulse Resp B/P B/P Pulse O2 O2 Flow FiO2 Mean Ox Delivery Rate 09/01 1441 97 Nasal 2.0L Cannula 09/01 1415 69 20 140/68 96 Room Air 09/01 1216 98.8 73 20 144/74 94 Room Air Intake & Output 09/01 1600 09/01 0800 09/01 0000 08/31 1600 08/31 0800 08/31 0000 Intake Total Output Total 150 Balance -150 Output, Urine 150 Patient 220 lb Weight Weight Reported by Patient Measurement Method Physical Exam: Morbidly obese, elderly female with nasal oxygen in place in mild respiratory distress. Vital signs: See above. HEENT: Normocephalic, atraumatic, EOMI, moist membranes. Neck: No JVD, no bruits. Lungs: Bibasilar crackles. Heart: S1, S2 with soft grade 1/6 systolic murmur. No gallop or rub. PMI not well felt. Abdomen: Soft, nontender, positive bowel sounds. Extremities: 1-2+ bilateral lower extremity edema. Labs/Carlo Results: Laboratory Tests 09/01 09/01 1332 1253 Chemistry Sodium (137 - 145 mmol/L) 143 Potassium (3.5 - 5.1 mmol/L) 3.7 Chloride (98 - 107 mmol/L) 99 Carbon Dioxide (22 - 30 mmol/L) 27 Anion Gap (5 - 16) 17 H BUN (7 - 17 mg/dL) 12 Creatinine (0.5 - 1.0 mg/dL) 0.7 Estimated GFR (>60 ml/min) > 60 BUN/Creatinine Ratio (7 - 25 %) 17.1 Glucose (65 - 99 mg/dL) 107 H Hemoglobin A1c (4.2 - 5.8 %) Pending Calcium (8.4 - 10.2 mg/dL) 9.9 Magnesium (1.6 - 2.3 mg/dL) 1.4 L Total Bilirubin (0.2 - 1.3 mg/dL) 1.2 AST (14 - 36 U/L) 18 ALT (9 - 52 U/L) 21 Alkaline Phosphatase (<127 U/L) 109 Troponin I (< 0.11 ng/ml) < 0.01 Fob-V-[id number] Pept (<125 pg/mL) 1350 H Total Protein (6.3 - 8.2 g/dL) 8.2 Albumin (3.5 - 5.0 g/dL) 4.6 Globulin (1.9 - 4.2 gm/dL) 3.6 Albumin/Globulin Ratio (1.1 - 2.2 %) 1.3 TSH (0.270 - 4.200 uIU/mL) 1.150 Coagulation D-Dimer High Sensitivty (0 - 243 ng/ml) 1032 H Hematology CBC w Diff NO MAN DIFF REQ WBC (4.8 - 10.8 /CUMM) 12.2 H RBC (4.20 - 5.40 /CUMM) 3.58 L Hgb (12.0 - 16.0 G/DL) 10.7 L Hct (37 - 47 %) 33.0 L MCV (81.0 - 99.0 FL) 92.2 MCH (27.0 - 31.0 PG) 29.9 MCHC (33.0 - 37.0 G/DL) 32.4 L RDW (11.5 - 14.5 %) 16.1 H Plt Count (130 - 400 /CUMM) 323 MPV (7.4 - 10.4 FL) 8.9 Gran % (42.2 - 75.2 %) 78.0 H Lymphocytes % (20.5 - 51.1 %) 14.9 L Monocytes % (1.7 - 9.3 %) 5.7 Eosinophils % (0 - 5 %) 0.7 Basophils % (0.0 - 2.0 %) 0.7 Absolute Granulocytes (1.4 - 6.5 /CUMM) 9.5 H Absolute Lymphocytes (1.2 - 3.4 /CUMM) 1.8 Absolute Monocytes (0.10 - 0.60 /CUMM) 0.7 H Absolute Eosinophils (0.0 - 0.7 /CUMM) 0.1 Absolute Basophils (0.0 - 0.2 /CUMM) 0.1 Urines Urine Color (YEL,AMB,STR) YEL Urine Clarity (CLEAR) CLEAR Urine pH (5.0 - 8.0) 6.5 Ur Specific [place] (1.001 - 1.035) 1.010 Urine Protein (NEG,<30 MG/DL) NEG Urine Ketones (NEG) NEG Urine Nitrite (NEG) NEG Urine Bilirubin (NEG) NEG Urine Urobilinogen (0.1 - 1.0 EU/dl) 0.2 Ur Leukocyte Esterase (NEG) SMALL H Ur Microscopic SEDIMENT EXAMINED Urine WBC (0 - 2 /HPF) 5-10 H Ur Epithelial Cells (NONE,FEW) RARE Urine Bacteria (NEG/NONE) FEW H Urine Hemoglobin (NEG) NEG Urine Glucose (N MG/DL) NEG Diagnostic Data EKG Results 09/01/2017: Sinus rhythm and diffuse T-wave abnormalities, cannot exclude ischemia. CXR Results 09/01/2017: Lung bases are obscured by overlying soft tissue on the frontal view with no definite focal airspace opacity seen on the lateral view. Low lung volumes and central vascular congestion without overt edema. Stable enlargement of the cardiac silhouette and chronic postsurgical changes. Assessment/Plan Assessment/Plan [id number] w/ hx of morbid obesity, hypothyroidism, COPD, HTN, HLD, DM, & extensive CAD (vide supra) who presented from home w/ several day c/o progressive SOB w/ orthopnea, PND, weight gain, and bilateral LE edema. Recommendations: * Admit to telemetry, follow-up troponins, repeat ECGs. * Strict inputs/outputs and daily weights. * IV furosemide 40 mg twice daily for the next 24 hours and reassess the need for further IV diuresis in the a.m. * Repeat CXR in a.m. following a good diuresis. * Continue outpatient cardiac regimen (statin, dual antiplatelet therapy, LÁZARO inhibitor, beta angelique, calcium channel antagonist, and long-acting nitrates with a 10-12 hour nitrate free interval). * Reiterate the need for dietary compliance. * Given change in status repeat echocardiogram. * Repeat pharmacologic stress test versus cardiac catheterization depending on clinical course. * Continue DVT prophylaxis. Further recommendations will follow, Thank you. Consult Acknowledgment - Thank you for your consult request.
--- NOTE | 2017-09-01 19:01 | ULTRASOUND REPORT ---
EXAMINATION: US TRIPLEX OF LOWER EXTREMITIES, BILATERAL CLINICAL INFORMATION: Edema. COMPARISON: None TECHNIQUE: Color-flow triplex imaging with spectral analysis and compression Doppler were performed on the lower extremities. Somewhat limited study due to patient body habitus. FINDINGS: Respiratory variation, normal compression and augmented flow are noted throughout the lower extremities. The visualized common femoral vein, superficial femoral vein, profunda femoral vein, popliteal vein and midcalf peroneal and posterior tibial venous segments show no evidence of deep venous thrombosis. There is no Patel's cyst. IMPRESSION: Normal triplex scan without evidence of deep venous thrombosis involving the lower extremities.
--- NOTE | 2017-09-01 21:31 | CT SCAN REPORT ---
EXAMINATION: CT ANGIOGRAM OF THE CHEST WITH AND WITHOUT CONTRAST (CT PULMONARY ANGIOGRAM FOR PE) CLINICAL INFORMATION: dyspnea, worsening LE edema, elevated D-dimer. COMPARISON: Chest x-ray 09/01/2017 TECHNIQUE: Prior to contrast administration, noncontrast localization images were obtained. Subsequently, multidetector volumetric imaging was performed from the thoracic inlet to below the diaphragms following the administration of 95 mL Optiray 320 intravenous contrast. No contrast reaction reported. Sagittal, coronal, and MIP oblique sagittal reformatted images were obtained on the CT workstation, uploaded to PACS, and reviewed. Total exam dose-length product 521.1 mGy-cm. FINDINGS: QUALITY OF STUDY/CONTRAST BOLUS: Satisfactory PULMONARY ARTERIES: No central or segmental pulmonary emboli. THORACIC AORTA: No aneurysm or dissection. There is atherosclerotic vascular calcifications of the wall of aorta without aneurysm. There is no aortic dissection. LUNG: No focal consolidation, nodules or masses. PLEURA: No pleural effusion or pneumothorax. MEDIASTINUM: Normal heart size. No pericardial effusion. No hilar or mediastinal lymphadenopathy. No evidence of septal bowing or right heart strain. There is atherosclerotic vascular wall calcification of the coronary arteries. Patient status post median sternotomy with surgical clips in the anterior mediastinum. CHEST WALL/AXILLA: No axillary or internal mammary lymphadenopathy. OSSEOUS STRUCTURES: Status post median sternotomy. This general spondylosis of dorsal spine with multilevel endplate spurs of the vertebrae. UPPER ABDOMEN: Unremarkable. No reflux of contrast into the hepatic veins to suggest elevated right heart pressures. Surgical clips at the gallbladder fossa. IMPRESSION: 1. No evidence of pulmonary embolism. 2. No acute change of the chest. VTE: negative
[2017-09-01 22:47] VITALS: BP 130/80
[2017-09-02 06:53] VITALS: BP 132/78
--- NOTE | 2017-09-02 07:15 | PN- Housestaff ---
Bria LOPEZ,Cabrera 09/02/17 0715: Subjective Follow-up For: CHF Subjective: Patient was seen and examined at bedside. She was resting comfortably. She had no acute events overnight. She denies any shortness of breath at rest, and is able to the restroom without significant dyspnea. She feels that her leg swelling is improving. She denies any chest pain, palpitations or cough. Review of Systems Constitutional: Denies: chills, fever. EENTM: Reports: no symptoms. Cardiovascular: Reports: peripheral edema. Respiratory: Reports: short of breath (improving). Denies: cough. Gastrointestinal: Reports: no symptoms. Genitourinary: Reports: no symptoms. Musculoskeletal: Reports: no symptoms. Skin: Reports: no symptoms. Objective Last 24 Hrs of Vital Signs/I&O Vital Signs Date Time Temp Pulse Resp B/P B/P Pulse O2 O2 Flow FiO2 Mean Ox Delivery Rate 09/02 0653 97.7 74 22 132/78 93 Nasal Cannula 09/01 2247 97.9 65 26 130/80 94 09/01 2229 Nasal 2.0L Cannula 09/01 2204 98.5 85 20 167/74 95 Nasal 2.0L Cannula 09/01 2153 98.8 85 20 167/74 09/01 2153 98.8 85 20 167/74 09/01 1441 97 Nasal 2.0L Cannula 09/01 1415 69 20 140/68 96 Room Air 09/01 1216 98.8 73 20 144/74 94 Room Air Intake & Output 09/02 0800 09/02 0000 09/01 1600 Intake Total 1240 Output Total 1500 150 Balance -260 -150 Intake, Oral 1240 Output, Urine 1500 150 Patient 221 lb 220 lb Weight Weight Bed scale Reported by Patient Measurement Method Physical Exam General Appearance: Alert, Oriented X3, Cooperative, No Acute Distress Skin Temp/Moisture Exam: Warm/Dry Sepsis Skin Exam (color): Normal for Ethnicity HEENT: Atraumatic Cardiovascular: Regular Rate, Normal S1, Normal S2 Lungs: bibasilar crackles, fainter than yesterday Abdomen: Normal Bowel Sounds, Soft, No Tenderness, No Hepatospenomegaly Extremities: 1+ LE edema Vascular: Normal Pulses, Pulses Symmetrical Current Medications: Current Medications Sig/Chuck Start time Last Medication Dose Route Stop Time Status Admin Acetaminophen 0 .STK-MED ONE 09/01 2004 DC PO Acetaminophen 650 MG ONCE ONE 09/01 1930 DC 09/01 PO 09/01 1931 2014 Allopurinol 300 MG DAILY 09/01 1609 AC 09/01 PO 2014 Amlodipine Besylate 10 MG DAILY 09/02 899 AC PO Aspirin 81 MG DAILY 09/02 899 AC PO Atorvastatin Calcium 20 MG QPM 09/01 2100 AC 09/01 PO 2153 Cholecalciferol 2,000 IU DAILY 09/02 09 AC PO Diazepam 0 .STK-MED ONE 09/01 2005 DC PO Diazepam 2 MG ONCE ONE 09/01 1930 DC 09/01 PO 09/01 1931 2013 Enoxaparin Sodium 0 .STK-MED ONE 09/01 2005 DC SC Enoxaparin Sodium 40 MG DAILY 09/01 1630 DC SC Furosemide 40 MG 7:30 AM, & 4:30 PM 09/02 0730 AC IV Furosemide 0 .STK-MED ONE 09/01 1537 DC IV Furosemide 20 MG ONCE ONE 09/01 1500 DC 09/01 IV 09/01 1501 1548 Gabapentin 0 .STK-MED ONE 09/01 2146 DC PO Gabapentin 300 MG BID 09/01 2100 AC 09/01 PO 2153 Heparin Sodium 5,000 UNIT Q8 09/01 2200 AC (Porcine) SC Insulin Aspart 0 AT BEDTIME 09/01 2100 AC SC Insulin Aspart 0 TIDAC 09/01 1700 AC SC Lidocaine 1 PAT DAILY 09/01 1923 AC EXT Lisinopril 0 .STK-MED ONE 09/01 2147 DC PO Lisinopril 10 MG BID 09/01 2100 AC 09/01 PO 2153 Magnesium Sulfate 1 GM Q2H 09/01 1630 DC 09/01 Dextrose/Water 100 ML IV 09/01 2028 2153 Metoprolol Tartrate 0 .STK-MED ONE 09/01 2147 DC PO Metoprolol Tartrate 100 MG BID 09/01 2100 AC 09/01 PO 2153 Nitroglycerin 0.4 MG DAILY 09/02 0900 AC TOP Potassium Chloride 0 .STK-MED ONE 09/01 2005 DC PO Potassium Chloride 40 MEQ ONCE ONE 09/01 1630 DC 09/01 PO 09/01 1631 2014 Ticagrelor 90 MG BID 09/01 2100 AC 09/01 PO 2153 Last 24 Hrs of Lab/Carlo Results Last 24 Hrs of Labs/Mics: Laboratory Tests 09/02/17 0654: Sodium Pending, Potassium Pending, Chloride Pending, Carbon Dioxide Pending, Anion Gap Pending, BUN Pending, Creatinine Pending, BUN/Creatinine Ratio Pending , CBC w Diff Pending, WBC Pending, RBC Pending, Hgb Pending, Hct Pending, MCV Pending, MCH Pending, MCHC Pending, RDW Pending, Plt Count Pending, MPV Pending 09/02/17 0120: Troponin I < 0.01 09/01/17 2015: Troponin I < 0.01 09/01/17 1332: Anion Gap 17 H, Estimated GFR > 60, BUN/Creatinine Ratio 17.1, Glucose 107 H, Hemoglobin A1c Pending, Calcium 9.9, Magnesium 1.4 L, Total Bilirubin 1.2, AST 18, ALT 21, Alkaline Phosphatase 109, Troponin I < 0.01, Uyt-N-Lqfotmnldqi Pept 1350 H, Total Protein 8.2, Albumin 4.6, Globulin 3.6, Albumin/Globulin Ratio 1.3, TSH 1.150, D-Dimer High Sensitivty 1032 H, CBC w Diff NO MAN DIFF REQ, RBC 3.58 L, MCV 92.2, MCH 29.9, MCHC 32.4 L, RDW 16.1 H, MPV 8.9, Gran % 78.0 H, Lymphocytes % 14.9 L, Monocytes % 5.7, Eosinophils % 0.7, Basophils % 0.7, Absolute Granulocytes 9.5 H, Absolute Lymphocytes 1.8, Absolute Monocytes 0.7 H, Absolute Eosinophils 0.1, Absolute Basophils 0.1 09/01/17 1253: Urine Color YEL, Urine Clarity CLEAR, Urine pH 6.5, Ur Specific [place] 1.010, Urine Protein NEG, Urine Ketones NEG, Urine Nitrite NEG, Urine Bilirubin NEG, Urine Urobilinogen 0.2, Ur Leukocyte Esterase SMALL H, Ur Microscopic SEDIMENT EXAMINED, Urine WBC 5-10 H, Ur Epithelial Cells RARE, Urine Bacteria FEW H, Urine Hemoglobin NEG, Urine Glucose NEG Orders Radiology Findings: LE doppler US Respiratory variation, normal compression and augmented flow are noted throughout the lower extremities. The visualized common femoral vein, superficial femoral vein, profunda femoral vein, popliteal vein and midcalf peroneal and posterior tibial venous segments show no evidence of deep venous thrombosis. There is no Patel's cyst. IMPRESSION: Normal triplex scan without evidence of deep venous thrombosis involving the lower extremities. CTA chest PULMONARY ARTERIES: No central or segmental pulmonary emboli. THORACIC AORTA: No aneurysm or dissection. There is atherosclerotic vascular calcifications of the wall of aorta without aneurysm. There is no aortic dissection. LUNG: No focal consolidation, nodules or masses. PLEURA: No pleural effusion or pneumothorax. MEDIASTINUM: Normal heart size. No pericardial effusion. No hilar or mediastinal lymphadenopathy. No evidence of septal bowing or right heart strain. There is atherosclerotic vascular wall calcification of the coronary arteries. Patient status post median sternotomy with surgical clips in the anterior mediastinum. CHEST WALL/AXILLA: No axillary or internal mammary lymphadenopathy. OSSEOUS STRUCTURES: Status post median sternotomy. This general spondylosis of dorsal spine with multilevel endplate spurs of the vertebrae. UPPER ABDOMEN: Unremarkable. No reflux of contrast into the hepatic veins to suggest elevated right heart pressures. Surgical clips at the gallbladder fossa. IMPRESSION: 1. No evidence of pulmonary embolism. 2. No acute change of the chest. VTE: negative Assessment/Plan Assessment: Patient is a 76-year-old female with a PMH significant for CAD status post multiple CABGs and PCIs with stent placement, significant cardiac family history , HTN, IBS, chronic back pain, borderline diabetes mellitus, who presents complaining of worsening dyspnea on exertion, and leg swelling. #CHF exacerbation Lower extremity Doppler negative for DVT, CTA chest negative for PE. -continue to monitor on telemetry -Follow-up repeat chest x-ray -Follow-up echo -Continue IV Lasix 40 mg twice a day -Strict I's and O's and daily weights -Wean off of supplemental O2 today -Continue to follow cardiology recommendations #Hypomagnesemia, hypokalemia -Continue to monitor electrolytes and replete as necessary #Chronic medical problems -Continue home medication regimen, with NovoLog sliding scale substituted for metformin -Of note patient needs to refrain from taking metformin for a total of 48 hours after her CTA done the evening of 09/01/17 Diet: Diabetic diet, sodium restriction DVT prophylaxis: subcutaneous heparin, ALPS CODE STATUS: Full code Problem List: 1. CHF exacerbation Pain Ratin Pain Location: none Pain Goal: Remain pain free Pain Plan: pain pathway Tomorrow's Labs & Rationales: BEP, Mg Viridiana Gaspar MD 09/02/17 1118: Attending MD Review Statement Attending Statement Attending MD Statement: examined this patient, discuss w/resident/PA/HYPERION ANALYST, agreed w/resident/PA/HYPERION ANALYST, reviewed EMR data (avail) Attending Assessment/Plan: 76F PMH CAD status post multiple CABGs and PCIs with stent placement, significant cardiac family history, HTN, IBS, chronic back pain admitted with dyspnea with exertion, b/l LE edema, bibasilar crackles on lung exam and mildly elevated BNP in the setting of acute on chronic systolic CHF. Patient feels well today. Able to ambulate but still becomes short of breath, though it is improved from yesterday. She has no other complaints. Repeat EKG NSR with no changes from first. 1. Acute on chronic systolic CHF 2. Dyspnea on exertion 3. History of CAD s/p CABG Plan - Continue on telemetry - Lasix 40mg IV BID - Cardiology consult - CXR - Echocardiogram - Continue home medications - I/O, daily weights - DVT PPx
[2017-09-02 07:46] LABS: ABSOLUTE BASOPHIL COUNT 0 /CUMM (0.0-0.2); ABSOLUTE EOSINOPHIL COUNT 0.2 /CUMM (0.0-0.7); ABSOLUTE GRANULOCYTE CT 7.5 /CUMM (1.4-6.5); ABSOLUTE LYMPH COUNT 1.9 /CUMM (1.2-3.4); ABSOLUTE MONOCYTE COUNT 0.7 /CUMM (0.10-0.60); BASOPHIL % 0.4 % (0.0-2.0); EOSINOPHIL % 1.7 % (0-5); GRANULOCYTE % 72.7 % (42.2-75.2); HEMATOCRIT 32.5 % (37-47); MEAN CORPUSCULAR HGB CONC 32.2 G/DL (33.0-37.0); MEAN CORPUSCULAR VOLUME 93.1 FL (81.0-99.0); MEAN PLATELET VOLUME 9.3 FL (7.4-10.4); PLATELET COUNT 304 /CUMM (130-400); RBC DISTRIBUTION WIDTH 16.9 % (11.5-14.5); RED BLOOD CELL CT 3.49 /CUMM (4.20-5.40); WHITE BLOOD CELL COUNT 10.3 /CUMM (4.8-10.8)
--- NOTE | 2017-09-02 13:04 | RADIOLOGY REPORT ---
EXAMINATION: XR PORTABLE CHEST CLINICAL INFORMATION: Shortness of breath. For follow-up. COMPARISON: 09/01/2017 TECHNIQUE: Portable frontal view of the chest was obtained. FINDINGS: Persistent low lung volume is noted bilaterally. Superimposed mild pulmonary venous congestion is noted, unchanged. There is no discrete focal airspace opacity identified. The cardiomediastinal silhouette is mildly enlarged, unchanged. Postop changes of sternotomy and CABG are noted. There is no pleural effusion present. Overall no significant change. IMPRESSION: No significant change since most recent prior study dated 09/01/2017.
[2017-09-02 15:27] VITALS: BP 128/70
--- NOTE | 2017-09-02 17:37 | PN- Cardiology ---
Subjective Subjective: Breathing improved. Objective Vital Signs and I&Os Vital Signs Date Time Temp Pulse Resp B/P B/P Pulse O2 O2 Flow FiO2 Mean Ox Delivery Rate 09/02 1527 97.8 64 20 128/70 94 Nasal 1.5L Cannula 09/02 0818 74 134/80 09/02 0817 74 134/80 09/02 0817 74 134/80 09/02 0800 95 Nasal 2.0L Cannula 09/02 0653 97.7 74 22 132/78 93 Nasal Cannula 09/01 2247 97.9 65 26 130/80 94 09/01 2229 Nasal 2.0L Cannula 09/01 2204 98.5 85 20 167/74 95 Nasal 2.0L Cannula 09/01 2153 98.8 85 20 167/74 09/01 2153 98.8 85 20 167/74 Intake & Output 09/02 1600 09/02 0800 09/02 0000 09/01 1600 09/01 0800 09/01 0000 Intake Total 645 887 6122 Output Total 6084 795 6721 150 Balance -300 -180 -260 -150 Intake, Oral 462 928 8489 Number 3 Bowel Movements Output, Urine 2154 121 1346 150 Patient 221 lb 220 lb Weight Weight Bed scale Reported by Patient Measurement Method Physical Exam: Morbidly obese, elderly female with nasal oxygen in place in mild respiratory distress. Vital signs: See above. HEENT: Normocephalic, atraumatic, EOMI, moist membranes. Neck: No JVD, no bruits. Lungs: Bibasilar crackles. Heart: S1, S2 with soft grade 1/6 systolic murmur. No gallop or rub. PMI not well felt. Abdomen: Soft, nontender, positive bowel sounds. Extremities: 1-2+ bilateral lower extremity edema. Current Medications: Current Medications Sig/Chuck Start time Last Medication Dose Route Stop Time Status Admin Acetaminophen 0 .STK-MED ONE 09/01 2004 DC PO Acetaminophen 650 MG ONCE ONE 09/01 1929 DC 09/01 PO 09/01 Allopurinol 300 MG DAILY 09/01 1609 AC 09/02 PO 08 Amlodipine Besylate 10 MG DAILY 09/02 0900 AC 09/02 PO 0817 Aspirin 81 MG DAILY 09/02 0900 AC 09/02 PO 0815 Atorvastatin Calcium 20 MG QPM 09/01 2100 AC 09/01 PO 2153 Cholecalciferol 2,000 IU DAILY 09/02 0900 09/02 PO 0818 Diazepam 0 .STK-MED ONE 09/01 2005 DC PO Diazepam 2 MG ONCE ONE 09/01 1930 DC 09/01 PO 09/01 1932013 Enoxaparin Sodium 0 .STK-MED ONE 09/01 2005 DC SC Enoxaparin Sodium 40 MG DAILY 09/01 1630 DC SC Furosemide 40 MG 7:30 AM, & 4:30 PM 09/02 0730 09/02 IV 1644 Gabapentin 0 .STK-MED ONE 09/01 2146 DC PO Gabapentin 300 MG BID 09/01 2099 09/02 PO 0817 Heparin Sodium 5,000 UNIT Q8 09/01 2200 AC (Porcine) SC Insulin Aspart 0 AT BEDTIME 09/01 2099 AC SC Insulin Aspart 0 TIDAC 09/01 1700 AC SC Lidocaine 1 PAT DAILY 09/01 1923 AC EXT Lisinopril 0 .STK-MED ONE 09/01 2146 DC PO Lisinopril 10 MG BID 09/01 2099 09/02 PO 0818 Loperamide HCl 2 MG Q6P PRN 09/02 1415 AC 09/02 PO 1420 Magnesium Chloride 64 MG ONCE ONE 09/02 1430 DC 09/02 PO 09/02 1431 1644 Magnesium Sulfate 1 GM Q2H 09/01 1630 DC 09/01 Dextrose/Water 100 ML IV 09/01 2029 2153 Metoprolol Tartrate 0 .STK-MED ONE 09/01 2146 DC PO Metoprolol Tartrate 100 MG BID 09/01 2099 09/02 PO 0817 Nitroglycerin 0.4 MG DAILY 09/02 0900 09/02 TOP 0815 Potassium Chloride 40 MEQ ONCE ONE 09/02 1230 DC 09/02 PO 09/02 1231 1401 Potassium Chloride 0 .STK-MED ONE 09/01 2005 DC PO Ticagrelor 90 MG BID 09/01 2099 09/02 PO 0815 Results Last 48 Hrs of Labs/Mics: Laboratory Tests 09/02/17 0654: Anion Gap 17 H, Estimated GFR > 60, BUN/Creatinine Ratio 13.8, CBC w Diff NO MAN DIFF REQ, RBC 3.49 L, MCV 93.1, MCH 30.0, MCHC 32.2 L, RDW 16.9 H, MPV 9.3, Gran % 72.7, Lymphocytes % 18.1 L, Monocytes % 7.1, Eosinophils % 1.7, Basophils % 0.4, Absolute Granulocytes 7.5 H, Absolute Lymphocytes 1.9, Absolute Monocytes 0.7 H, Absolute Eosinophils 0.2, Absolute Basophils 0 09/02/17 0120: Magnesium 1.8, Troponin I < 0.01 09/01/172014: Troponin I < 0.01 09/01/17 1332: Anion Gap 17 H, Estimated GFR > 60, BUN/Creatinine Ratio 17.1, Glucose 107 H, Hemoglobin A1c 6.4 H, Calcium 9.9, Magnesium 1.4 L, Total Bilirubin 1.2, AST 18, ALT 21, Alkaline Phosphatase 109, Troponin I < 0.01, Ddh-D-Mugqhyqozwl Pept 1350 H, Total Protein 8.2, Albumin 4.6, Globulin 3.6, Albumin/Globulin Ratio 1.3, TSH 1.150, D-Dimer High Sensitivty 1032 H, CBC w Diff NO MAN DIFF REQ, RBC 3.58 L, MCV 92.2, MCH 29.9, MCHC 32.4 L, RDW 16.1 H, MPV 8.9, Gran % 78.0 H, Lymphocytes % 14.9 L, Monocytes % 5.7, Eosinophils % 0.7, Basophils % 0.7, Absolute Granulocytes 9.5 H, Absolute Lymphocytes 1.8, Absolute Monocytes 0.7 H, Absolute Eosinophils 0.1, Absolute Basophils 0.1 09/01/17 1253: Urine Color YEL, Urine Clarity CLEAR, Urine pH 6.5, Ur Specific [place] 1.010, Urine Protein NEG, Urine Ketones NEG, Urine Nitrite NEG, Urine Bilirubin NEG, Urine Urobilinogen 0.2, Ur Leukocyte Esterase SMALL H, Ur Microscopic SEDIMENT EXAMINED, Urine WBC 5-10 H, Ur Epithelial Cells RARE, Urine Bacteria FEW H, Urine Hemoglobin NEG, Urine Glucose NEG Recent Imaging Studies: CXR 09/02/2017: No significant change since most recent prior study dated 09/01/2017. Assessment/Plan Assessment/Plan [id number] w/ hx of morbid obesity, hypothyroidism, COPD, HTN, HLD, DM, & extensive CAD (see initial consultation) who presented from home w/ several day c/o progressive SOB w/ orthopnea, PND, weight gain, and bilateral LE edema. Recommendations: * Continue on telemetry with strict inputs/outputs and daily weights. * IV furosemide 40 mg twice daily for the next 24 hours and reassess the need for further IV diuresis in the a.m. * Repeat CXR in a.m. following a good diuresis. * Continue outpatient cardiac regimen (statin, dual antiplatelet therapy, LÁZARO inhibitor, beta angelique, calcium channel antagonist, and long-acting nitrates with a 10-12 hour nitrate free interval). * Reiterate the need for dietary compliance. * Follow-up on echocardiogram. * Repeat pharmacologic stress test versus cardiac catheterization depending on clinical course. * Continue DVT prophylaxis. Continue telemetry? Yes
--- NOTE | 2017-09-02 18:54 | ECHOCARDIOGRAM REPORT ---
NIELS SYLVESTER Age: 76 : 1940 Gender: F Exam Date: 09/02/2017 10:35 Exam Location: [address] Ht (in): 63 Wt (lb): 221 BSA: 2.16 BP: 132 / 78 Ordering Physician: Fabian Muhammad MD Referring Physician: Fabian Muhammad MD Technologist: Rick Bowles [facility] Room Number: 188-1 Indications: Shortness of breath Rhythm: Sinus Technical Quality: Poor, Technically difficult study FINDINGS Left Ventricle Normal size left ventricle. Mild to moderate concentric left ventricular hypertrophy. No obvious regional wall motion abnormalities. Normal left ventricular ejection fraction visually estimated at >55%. Normal left ventricular diastolic filling pattern for age. Right Ventricle Normal right ventricular size and function. Right Atrium Normal right atrial size. Left Atrium Mild left atrial dilatation. Mitral Valve Moderate mitral annular calcification. Mitral valve mildly thickened. Mild mitral regurgitation. Aortic Valve Aortic valve not well visualized. Mildly thickened aortic valve leaflets. Mild aortic stenosis. Trace aortic regurgitation. Tricuspid Valve Structurally normal tricuspid valve. Trace tricuspid regurgitation. Severe pulmonary hypertension. Right ventricular systolic pressure estimated to be elevated at 99 mmHg. Pulmonic Valve Pulmonic valve not well visualized. Trace pulmonic regurgitation. Pericardium No pericardial effusion. Great Vessels Normal size aortic root. Mildly dilated ascending aorta. Dilated inferior vena cava. CONCLUSIONS Normal size left ventricle. Mild to moderate concentric left ventricular hypertrophy. Normal left ventricular ejection fraction visually estimated at > 55%. Normal left ventricular diastolic filling pattern for age. Normal right ventricular size and function. Normal right atrial size. Mild left atrial dilatation. Mild mitral regurgitation. Mild aortic stenosis. Trace aortic regurgitation. Trace tricuspid regurgitation. Severe pulmonary hypertension. Trace pulmonic regurgitation. Mildly dilated ascending aorta. Dilated inferior vena cava. Milind Mcguire M.D. (Electronically Signed) Final Date: 02 September 2017 18:53 MEASUREMENTS (Male / Female) Normal Values 2D ECHO LV Diastolic Diameter PLAX 4.5 cm 4.2 - 5.9 / 3.9 - 5.3 cm LV Systolic Diameter PLAX 3.0 cm 2.1 - 4.0 cm LV Fractional Shortening PLAX 33.3 % 25 - 46 % LV Ejection Fraction 2D Teich 62.1 % IVS Diastolic Thickness 1.4 cm LVPW Diastolic Thickness 1.2 cm LV Relative Wall Thickness 0.6 RV Internal Dim ED PLAX 3.5 cm 1.9 - 3.8 cm LVOT Diameter 1.7 cm Aortic Root Diameter 2.1 cm LA Systolic Diameter LX 3.9 cm 3.0 - 4.0 / 2.7 - 3.8 cm Ascending Aorta Diameter 3.4 cm DOPPLER AV Peak Velocity 199.0 cm/s AV Peak Gradient 15.8 mmHg AV Mean Velocity 128.0 cm/s AV Mean Gradient 8.0 mmHg AV Velocity Time Integral 40.4 cm AI Deceleration Mathews 107.0 cm/s AI Peak Velocity 272.0 cm/s AI Pressure Half Time 743.0 ms AI Peak Gradient 29.6 mmHg LVOT Peak Velocity 111.0 cm/s LVOT Peak Gradient 4.9 mmHg LVOT Mean Velocity 61.6 cm/s LVOT Mean Gradient 2.0 mmHg LVOT Velocity Time Integral 24.0 cm LVOT Stroke Volume 54.5 cm AV Area Cont Eq vti 1.3 cm AV Area Cont Eq pk 1.3 cm MV Peak Velocity 132.0 cm/s MV Peak Gradient 7.0 mmHg MV Mean Velocity 70.5 cm/s MV Mean Gradient 2.0 mmHg Mitral E Point Velocity 133.0 cm/s Mitral A Point Velocity 74.5 cm/s Mitral E to A Ratio 1.8 MV PHT Velocity 139.0 cm/s MV Deceleration Mathews 541.0 cm/s MV Pressure Half Time 77.1 ms MV Area PHT 2.9 cm MV Deceleration Time 278.0 ms TR Peak Velocity 471.0 cm/s TR Peak Gradient 88.7 mmHg Right Atrial Pressure 10.0 mmHg Pulmonary Artery Systolic Pressu 98.7 mmHg Right Ventricular Systolic Press 98.7 mmHg PV Peak Velocity 117.0 cm/s PV Peak Gradient 5.5 mmHg PV Mean Velocity 69.8 cm/s PV Mean Gradient 2.0 mmHg PV Velocity Time Integral 22.1 cm LV E' Lateral Velocity 9.9 cm/s Mitral E to LV E' Lateral Ratio 13.4 LV E' Septal Velocity 7.1 cm/s Mitral E to LV E' Septal Ratio 18.7
[2017-09-03 06:30] VITALS: BP 126/74
--- NOTE | 2017-09-03 08:45 | PN- Housestaff ---
[facility] 09[facility]03[facility] 0845: Subjective Follow-up For: CHF exacerbation Tele-Events Since Last Visit: Sinus rhythm with heart rate between 3963 Review of Systems Constitutional: Reports: see HPI. Objective Last 24 Hrs of Vital Signs/I&O Vital Signs Date Time Temp Pulse Resp B/P B/P Pulse O2 O2 Flow FiO2 Mean Ox Delivery Rate 09/03 1600 94 Nasal 1.0L Cannula 09/03 1430 98.5 65 20 134/62 94 Nasal 1.0L Cannula 09/03 0906 68 134/78 09/03 0906 68 134/78 09/03 0905 68 134/78 09/03 0800 93 Nasal 1.0L Cannula 09/03 0630 98.7 70 18 126/74 98 09/03 0000 Nasal 1.0L Cannula 09/02 130/72 09/02 130/72 Intake & Output 09/03 1600 09/03 0800 09/03 0000 Intake Total 600 120 120 Output Total 900 500 800 Balance -300 -380 -680 Intake, Oral 600 120 120 Output, Urine 900 500 800 Patient 220 lb Weight Weight Bed scale Measurement Method Physical Exam General Appearance: Alert, Cooperative Skin: No Rashes Skin Temp/Moisture Exam: Warm/Dry Sepsis Skin Exam (color): Normal for Ethnicity HEENT: Atraumatic Neck: Supple Cardiovascular: Normal S1, Normal S2 Lungs: Clear to Auscultation Abdomen: Soft, No Tenderness Extremities: B/l pedal edema Assessment/Plan Assessment: Patient is a 76-year-old female with a PMH significant for CAD status post multiple CABGs and PCIs with stent placement, significant cardiac family history , HTN, IBS, chronic back pain, borderline diabetes mellitus, who presents complaining of worsening dyspnea on exertion, and leg swelling. CHF exacerbation: Lower extremity Doppler negative for DVT, CTA chest negative for PE. -continue to monitor on telemetry -Follow-up repeat chest x-ray -Follow-up echo -Continue IV Lasix 40 mg twice a day -Strict I's and O's and daily weights -Wean off of supplemental O2 today -Continue to follow cardiology recommendations Hypomagnesemia, hypokalemia: -Continue to monitor electrolytes and replete as necessary Chronic medical problems: -Continue home medication regimen, with NovoLog sliding scale substituted for metformin -Of note patient needs to refrain from taking metformin for a total of 48 hours after her CTA done the evening of 09/01/17 DVT prophylaxis: -subcutaneous heparin, ALPS CODE STATUS: Full code Problem List: 1. CHF exacerbation Pain Ratin Pain Location: none Pain Goal: Remain pain free Pain Plan: pain pathway Tomorrow's Labs & Rationales: karely Gaspar MDAmykale 09/03/17 1800: Attending MD Review Statement Attending Statement Attending MD Statement: examined this patient, discuss w/resident/PA/VP REVENUE CYCLE, agreed w/resident/PA/VP REVENUE CYCLE, reviewed EMR data (avail) Attending Assessment/Plan: 76F PMH CAD status post multiple CABGs and PCIs with stent placement, significant cardiac family history, HTN, IBS, chronic back pain admitted with dyspnea with exertion, b/l LE edema, bibasilar crackles on lung exam and mildly elevated BNP in the setting of acute on chronic systolic CHF. Patient feels well today. Able to ambulate but still becomes short of breath, though it is improved from yesterday. She has no other complaints. Repeat EKG NSR with no changes from first. 1. Acute on chronic systolic CHF 2. Dyspnea on exertion 3. History of CAD s/p CABG Plan - Continue on telemetry - Lasix 40mg IV BID - Cardiology consult - CXR - Echocardiogram - Continue home medications - I/O, daily weights - DVT PPx
[2017-09-03 14:30] VITALS: BP 134/62
--- NOTE | 2017-09-03 20:11 | PN- Cardiology ---
Subjective Subjective: No complaints, but remains on nasal oxygen at 1-1/2 L. Objective Vital Signs and I&Os Vital Signs Date Time Temp Pulse Resp B/P B/P Pulse O2 O2 Flow FiO2 Mean Ox Delivery Rate 09/03 1600 94 Nasal 1.0L Cannula 09/03 1430 98.5 65 20 134/62 94 Nasal 1.0L Cannula 09/03 0906 68 134/78 09/03 0906 68 134/78 09/03 0905 68 134/78 09/03 0800 93 Nasal 1.0L Cannula 09/03 0630 98.7 70 18 126/74 98 09/03 0000 Nasal 1.0L Cannula 09/02 2107 68 130/72 09/02 2106 68 130/72 Intake & Output 09/03 1600 09/03 0800 09/03 0000 09/02 1600 09/02 0800 09/02 0000 Intake Total 600 120 120 703 273 4254 Output Total 900 615 336 0062 300 1500 Balance -300 -380 -680 -300 -180 -260 Intake, Oral 600 120 120 856 743 0701 Number 3 Bowel Movements Output, Urine 900 717 649 0902 300 1500 Patient 220 lb 221 lb Weight Weight Bed scale Bed scale Measurement Method Physical Exam: Morbidly obese, elderly female with nasal oxygen in place in mild respiratory distress. Vital signs: See above. HEENT: Normocephalic, atraumatic, EOMI, moist membranes. Neck: No JVD, no bruits. Lungs: Bibasilar crackles. Heart: S1, S2 with soft grade 1/6 systolic murmur. No gallop or rub. PMI not well felt. Abdomen: Soft, nontender, positive bowel sounds. Extremities: 1-2+ bilateral lower extremity edema. Current Medications: Current Medications Sig/Chuck Start time Last Medication Dose Route Stop Time Status Admin Allopurinol 300 MG DAILY 09/01 1609 AC 09/03 PO 906 Amlodipine Besylate 10 MG DAILY 09/02 899 AC 09/03 PO 09 Aspirin 81 MG DAILY 09/02 899 AC 09/03 PO 09 Atorvastatin Calcium 20 MG QPM 09/01 2100 AC 09/02 PO 2106 Cholecalciferol 2,000 IU DAILY 09/02 899 AC 09/03 PO 09 Furosemide 40 MG 7:30 AM, & 4:30 PM 09/02 0730 AC 04/14 IV 1602 Gabapentin 300 MG BID 09/01 2099 AC 09/03 PO 0906 Heparin Sodium 5,000 UNIT Q8 09/01 2200 AC (Porcine) SC Insulin Aspart 0 AT BEDTIME 09/01 2100 AC SC Insulin Aspart 0 TIDAC 09/01 1700 AC SC Lidocaine 1 PAT DAILY 09/01 1923 AC 09/02 EXT 1823 Lisinopril 10 MG BID 09/01 2099 AC 09/03 PO 0906 Loperamide HCl 2 MG Q6P PRN 09/02 1415 AC 09/02 PO 1420 Magnesium Oxide 400 MG ONE ONE 09/03 1215 DC 09/03 PO 09/03 1216 1303 Metoprolol Tartrate 100 MG BID 09/01 2100 AC 09/03 PO 0905 Nitroglycerin 0.4 MG DAILY 09/02 0900 AC 09/03 TOP 0907 Potassium Chloride 40 MEQ ONCE ONE 09/03 1215 DC 09/03 PO 09/03 1216 1303 Ticagrelor 90 MG BID 09/01 2099 AC 09/03 PO 0907 Results Last 48 Hrs of Labs/Mics: Laboratory Tests 09/03/17 0921: Anion Gap 12, Estimated GFR > 60, BUN/Creatinine Ratio 16.3, Magnesium 1.7 09/02/17 0654: Anion Gap 17 H, Estimated GFR > 60, BUN/Creatinine Ratio 13.8, CBC w Diff NO MAN DIFF REQ, RBC 3.49 L, MCV 93.1, MCH 30.0, MCHC 32.2 L, RDW 16.9 H, MPV 9.3, Gran % 72.7, Lymphocytes % 18.1 L, Monocytes % 7.1, Eosinophils % 1.7, Basophils % 0.4, Absolute Granulocytes 7.5 H, Absolute Lymphocytes 1.9, Absolute Monocytes 0.7 H, Absolute Eosinophils 0.2, Absolute Basophils 0 09/02/17 0120: Magnesium 1.8, Troponin I < 0.01 09/01/172014: Troponin I < 0.01 Recent Imaging Studies: Echocardiogram 09/02/2017: Normal size left ventricle. Mild to moderate concentric left ventricular hypertrophy. Normal left ventricular ejection fraction visually estimated at > 55%. Normal left ventricular diastolic filling pattern for age. Normal right ventricular size and function. Normal right atrial size. Mild left atrial dilatation. Mild mitral regurgitation. Mild aortic stenosis. Trace aortic regurgitation. Trace tricuspid regurgitation. Severe pulmonary hypertension. Trace pulmonic regurgitation. Mildly dilated ascending aorta. Dilated inferior vena cava. Assessment/Plan Assessment/Plan 76-y-o-w-f w/ hx of morbid obesity, hypothyroidism, COPD, HTN, HLD, DM, & extensive CAD (see initial consultation) who presented from home w/ several day c/o progressive SOB w/ orthopnea, PND, weight gain, and bilateral LE edema. Pulmonary hypertension worrisome and will need further evaluation/management. Recommendations: * Continue on telemetry with strict inputs/outputs and daily weights. * Continue IV furosemide 40 mg twice daily for the next 24 hours and reassess the need for further IV diuresis in the a.m. * Repeat CXR in a.m. following a good diuresis. Continue telemetry? Yes
[2017-09-03 22:19] VITALS: BP 148/70
[2017-09-04 06:50] VITALS: BP 138/72
--- NOTE | 2017-09-04 07:39 | PN- Housestaff ---
Bria LOPEZ,Cabrera 09/04/17 0739: Subjective Follow-up For: CHF exacerbation Tele-Events Since Last Visit: Sinus rhythm 40s-70s, appears to go into 2-1 block overnight Subjective: Patient was seen and examined at bedside. She is resting comfortably in a chair next to bed, she had no acute events overnight. She denies any chest pain, palpitations, shortness of breath, however she was able to be weaned off of supplemental O2 as she desaturated to approximately 88% at rest. Review of Systems Constitutional: Denies: chills, fever. EENTM: Reports: no symptoms. Cardiovascular: Denies: chest pain, palpitations. Respiratory: Reports: no symptoms. Gastrointestinal: Reports: no symptoms. Genitourinary: Reports: no symptoms. Musculoskeletal: Reports: no symptoms. Skin: Reports: no symptoms. Objective Last 24 Hrs of Vital Signs/I&O Vital Signs Date Time Temp Pulse Resp B/P B/P Pulse O2 O2 Flow FiO2 Mean Ox Delivery Rate 09/04 0650 98.0 64 20 138/72 95 09/04 0000 Nasal 1.0L Cannula 09/03 2219 98.3 71 20 148/70 94 09/03 2140 Nasal 1.0L Cannula 09/03 2114 76 148/70 09/03 2114 76 148/70 09/03 1600 94 Nasal 1.0L Cannula 09/03 1430 98.5 65 20 134/62 94 Nasal 1.0L Cannula 09/03 0906 68 134/78 09/03 0906 68 134/78 09/03 0905 68 134/78 09/03 0800 93 Nasal 1.0L Cannula Intake & Output 09/04 0800 09/04 0000 09/03 1600 Intake Total 200 240 600 Output Total 300 570 900 Balance -100 -330 -300 Intake, Oral 200 240 600 Number 1 Bowel Movements Output, Urine 300 570 900 Patient 211 lb Weight Weight Chair scale Measurement Method Physical Exam General Appearance: Alert, Oriented X3, Cooperative, No Acute Distress Sepsis Skin Exam (color): Normal for Ethnicity Cardiovascular: Regular Rate, Normal S1, Normal S2 Lungs: mildly diminished Abdomen: Normal Bowel Sounds, Soft, No Tenderness Current Medications: Current Medications Sig/Chuck Start time Last Medication Dose Route Stop Time Status Admin Allopurinol 300 MG DAILY 09/01 1609 AC 09/03 PO 0907 Amlodipine Besylate 10 MG DAILY 09/02 0900 AC 09/03 PO 0906 Aspirin 81 MG DAILY 09/02 09 AC 09/03 PO 0905 Atorvastatin Calcium 20 MG QPM 09/01 2099 AC 09/03 PO 211 Cholecalciferol 2,000 IU DAILY 09/02 09 AC 09/03 PO 09 Furosemide 40 MG 7:30 AM, & 4:30 PM 09/02 0730 AC 09/03 IV 1602 Gabapentin 300 MG BID 09/01 2099 AC 09/03 PO 211 Heparin Sodium 5,000 UNIT Q8 09/01 2200 AC (Porcine) SC Insulin Aspart 0 AT BEDTIME 09/01 2100 AC SC Insulin Aspart 0 TIDAC 09/01 1700 AC SC Lidocaine 1 PAT DAILY 09/01 1923 AC 09/02 EXT 1823 Lisinopril 10 MG BID 09/01 2099 AC 09/03 PO 211 Loperamide HCl 2 MG Q6P PRN 09/02 1415 AC 09/02 PO 1420 Magnesium Oxide 400 MG ONE ONE 09/03 1215 DC 09/03 PO 09/03 1216 1303 Melatonin 5 MG ONCE ONE 09/03 2345 DC 09/03 PO 09/03 2346 2355 Metoprolol Tartrate 100 MG BID 09/01 2100 AC 09/03 PO 211 Nitroglycerin 0.4 MG DAILY 09/02 09 AC 09/03 TOP 0907 Potassium Chloride 40 MEQ ONCE ONE 09/03 1215 DC 09/03 PO 09/03 1216 1303 Ticagrelor 90 MG BID 09/01 2099 AC 09/03 PO 211 Last 24 Hrs of Lab/Carlo Results Last 24 Hrs of Labs/Mics: Laboratory Tests 09/04/17 0633: Sodium Pending, Potassium Pending, Chloride Pending, Carbon Dioxide Pending, Anion Gap Pending, BUN Pending, Creatinine Pending, BUN/Creatinine Ratio Pending , Magnesium Pending 09/03/17 0921: Anion Gap 12, Estimated GFR > 60, BUN/Creatinine Ratio 16.3, Magnesium 1.7 Orders Radiology Findings: CXR The cardiomediastinal silhouette is mildly enlarged. There is improved lung volume noted bilaterally since the prior study. There is pulmonary venous congestion present. No discrete focal airspace disease. Postoperative changes of sternotomy and CABG is noted. There is no pleural effusion present. The visualized upper abdomen is unremarkable. IMPRESSION: 1. Improved lung volumes since the prior study dated 09/02/2017. 2. Persistent mild pulmonary venous congestion. 3. No new abnormalities. Assessment/Plan Assessment: Patient is a 76-year-old female with a PMH significant for CAD status post multiple CABGs and PCIs with stent placement, significant cardiac family history , HTN, IBS, chronic back pain, borderline diabetes mellitus, who presents complaining of worsening dyspnea on exertion, and leg swelling. #CHF exacerbation Lower extremity Doppler negative for DVT, CTA chest negative for PE. -continue to monitor on telemetry -Repeat chest x-ray is again stable -Follow-up echo -Continue IV Lasix 40 mg twice a day -Strict I's and O's and daily weights -continue to attempt to wean off of supplemental O2 today -Continue to follow cardiology recommendations #Hypomagnesemia, hypokalemia -Continue to monitor electrolytes and replete as necessary #Chronic medical problems -Continue home medication regimen, with NovoLog sliding scale substituted for metformin Diet: Diabetic diet, sodium restriction DVT prophylaxis: subcutaneous heparin, ALPS CODE STATUS: Full code Problem List: 1. CHF exacerbation Pain Ratin Pain Location: none Pain Goal: Remain pain free Pain Plan: pain pathway Tomorrow's Labs & Rationales: BEP, CBC Viridiana Gaspar MD 09/04/17 1518: Attending MD Review Statement Attending Statement Attending MD Statement: examined this patient, discuss w/resident/PA/TITLE I TEACHER, agreed w/resident/PA/TITLE I TEACHER, reviewed EMR data (avail) Attending Assessment/Plan: 76F PMH CAD status post multiple CABGs and PCIs with stent placement, significant cardiac family history, HTN, IBS, chronic back pain admitted with dyspnea with exertion, b/l LE edema, bibasilar crackles on lung exam and mildly elevated BNP in the setting of acute on chronic systolic CHF. 1. Acute on chronic systolic CHF 2. Dyspnea on exertion 3. History of CAD s/p CABG Plan - Continue on telemetry - Lasix 40mg IV BID - Cardiology consult - CXR - Echocardiogram - Continue home medications - I/O, daily weights - DVT PPx
--- NOTE | 2017-09-04 08:34 | PN- Housestaff ---
Objective Last 24 Hrs of Vital Signs/I&O Vital Signs Date Time Temp Pulse Resp B/P B/P Pulse O2 O2 Flow FiO2 Mean Ox Delivery Rate 09/04 0650 98.0 64 20 138/72 95 09/04 0000 Nasal 1.0L Cannula 09/03 2219 98.3 71 20 148/70 94 09/03 2140 Nasal 1.0L Cannula 09/03 2114 76 148/70 09/03 2114 76 148/70 09/03 1600 94 Nasal 1.0L Cannula 09/03 1430 98.5 65 20 134/62 94 Nasal 1.0L Cannula 09/03 0906 68 134/78 09/03 0906 68 134/78 09/03 0905 68 134/78 Intake & Output 09/04 1600 09/04 0800 09/04 0000 Intake Total 200 240 Output Total 300 570 Balance -100 -330 Intake, Oral 200 240 Number 1 Bowel Movements Output, Urine 300 570 Patient 211 lb Weight Weight Chair scale Measurement Method Current Medications: Current Medications Sig/Chuck Start time Last Medication Dose Route Stop Time Status Admin Allopurinol 300 MG DAILY 09/01 1609 AC 09/03 PO 0907 Amlodipine Besylate 10 MG DAILY 09/02 0900 AC 09/03 PO 0906 Aspirin 81 MG DAILY 09/02 0900 AC 09/03 PO 0905 Atorvastatin Calcium 20 MG QPM 09/01 2100 AC 09/03 PO 211 Cholecalciferol 2,000 IU DAILY 09/02 0900 AC 09/03 PO 09 Furosemide 40 MG 7:30 AM, & 4:30 PM 09/02 0730 AC 09/03 IV 1602 Gabapentin 300 MG BID 09/01 2099 AC 09/03 PO 211 Heparin Sodium 5,000 UNIT Q8 09/01 2200 AC (Porcine) SC Insulin Aspart 0 AT BEDTIME 09/01 2100 SC Insulin Aspart 0 TIDAC 09/01 1700 AC SC Lidocaine 1 PAT DAILY 09/01 1923 AC 09/02 EXT 1823 Lisinopril 10 MG BID 09/01 2100 AC 09/03 PO 211 Loperamide HCl 2 MG Q6P PRN 09/02 1415 AC 09/02 PO 1420 Magnesium Oxide 400 MG ONE ONE 09/03 1215 DC 09/03 PO 09/03 1216 1303 Melatonin 5 MG ONCE ONE 09/03 2345 DC 09/03 PO 04/14 2346 2355 Metoprolol Tartrate 100 MG BID 09/01 2100 AC 09/03 PO 2114 Nitroglycerin 0.4 MG DAILY 09/02 0900 AC 09/03 TOP 0907 Potassium Chloride 40 MEQ ONCE ONE 09/03 1215 DC 09/03 PO 09/03 1216 1303 Ticagrelor 90 MG BID 09/01 2100 AC 09/03 PO 211 Last 24 Hrs of Lab/Carlo Results Last 24 Hrs of Labs/Mics: Laboratory Tests 09/04/17 0633: Sodium Pending, Potassium Pending, Chloride Pending, Carbon Dioxide Pending, Anion Gap Pending, BUN Pending, Creatinine Pending, BUN/Creatinine Ratio Pending , Magnesium Pending 09/03/17 0921: Anion Gap 12, Estimated GFR > 60, BUN/Creatinine Ratio 16.3, Magnesium 1.7
--- NOTE | 2017-09-04 14:29 | RADIOLOGY REPORT ---
EXAMINATION: XR CHEST CLINICAL INFORMATION: Shortness of breath. COMPARISON: Chest done on 09/02/2017. TECHNIQUE: 2 views of the chest were obtained. FINDINGS: The cardiomediastinal silhouette is mildly enlarged. There is improved lung volume noted bilaterally since the prior study. There is pulmonary venous congestion present. No discrete focal airspace disease. Postoperative changes of sternotomy and CABG is noted. There is no pleural effusion present. The visualized upper abdomen is unremarkable. IMPRESSION: 1. Improved lung volumes since the prior study dated 09/02/2017. 2. Persistent mild pulmonary venous congestion. 3. No new abnormalities.
[2017-09-04 14:54] VITALS: BP 112/58
--- NOTE | 2017-09-04 20:49 | PN- Cardiology ---
Subjective Subjective: Breathing better and edema improved. Objective Vital Signs and I&Os Vital Signs Date Time Temp Pulse Resp B/P B/P Pulse O2 O2 Flow FiO2 Mean Ox Delivery Rate 09/04 1600 Nasal 1.0L Cannula 09/04 1454 98.3 64 20 112/58 93 Nasal 1.0L Cannula 09/04 0905 80 134/82 09/04 0905 80 134/82 09/04 0904 80 132/84 09/04 0800 92 Nasal 1.0L Cannula 09/04 0650 98.0 64 20 138/72 95 09/04 0000 Nasal 1.0L Cannula 09/03 2219 98.3 71 20 148/70 94 09/03 2140 Nasal 1.0L Cannula 09/03 211 76 148/70 09/03 2113 76 148/70 Intake & Output 09/04 1600 09/04 0800 09/04 0000 09/03 1600 09/03 0800 09/03 0000 Intake Total 625 200 240 600 120 120 Output Total 820 300 570 900 500 800 Balance -195 -100 -330 -300 -380 -680 Intake, IV 25 Intake, Oral 600 200 240 600 120 120 Number 1 Bowel Movements Output, Urine 820 300 570 900 500 800 Patient 211 lb 220 lb Weight Weight Chair scale Bed scale Measurement Method Physical Exam: Morbidly obese, elderly female with nasal oxygen in place in mild respiratory distress. Vital signs: See above. HEENT: Normocephalic, atraumatic, EOMI, moist membranes. Neck: No JVD, no bruits. Lungs: Bibasilar crackles. Heart: S1, S2 with soft grade 1/6 systolic murmur. No gallop or rub. PMI not well felt. Abdomen: Soft, nontender, positive bowel sounds. Extremities: 1-2+ bilateral lower extremity edema. Current Medications: Current Medications Sig/Chuck Start time Last Medication Dose Route Stop Time Status Admin Allopurinol 300 MG DAILY 09/01 1609 AC 09/04 PO 905 Amlodipine Besylate 10 MG DAILY 09/02 899 AC 09/04 PO 904 Aspirin 81 MG DAILY 09/02 899 AC 09/04 PO 903 Atorvastatin Calcium 20 MG QPM 09/01 2099 AC 09/04 PO 2024 Cholecalciferol 2,000 IU DAILY 09/02 899 AC 09/04 PO 904 Furosemide 40 MG 7:30 AM, & 4:30 PM 09/02 0730 AC 09/04 IV 1558 Gabapentin 300 MG BID 09/01 2099 AC 09/04 PO 2023 Heparin Sodium 5,000 UNIT Q8 09/01 2200 AC (Porcine) SC Insulin Aspart 0 AT BEDTIME 09/01 2100 AC SC Insulin Aspart 0 TIDAC 09/01 1700 AC SC Lidocaine 1 PAT DAILY 09/01 1923 AC 09/02 EXT 1823 Lisinopril 10 MG BID 09/01 2099 AC 09/04 PO 2024 Loperamide HCl 2 MG Q6P PRN 09/02 1415 AC 09/02 PO 1420 Melatonin 5 MG ONCE ONE 09/03 2345 DC 09/03 PO 09/03 2346 2355 Metoprolol Tartrate 100 MG BID 09/01 2099 AC 09/04 PO 2023 Nitroglycerin 0.4 MG DAILY 09/02 0900 AC 09/04 TOP 0906 Ticagrelor 90 MG BID 09/01 2099 AC 09/04 PO 2023 Results Last 48 Hrs of Labs/Mics: Laboratory Tests 09/04/17 0633: Anion Gap 15, Estimated GFR > 60, BUN/Creatinine Ratio 23.3, Magnesium 1.9 09/03/17 0921: Anion Gap 12, Estimated GFR > 60, BUN/Creatinine Ratio 16.3, Magnesium 1.7 Recent Imaging Studies: CXR 09/03/2017: 1. Improved lung volumes since the prior study dated 09/02/2017. 2. Persistent mild pulmonary venous congestion. 3. No new abnormalities. Assessment/Plan Assessment/Plan [id number] w/ hx of morbid obesity, hypothyroidism, COPD, HTN, HLD, DM, & extensive CAD (see initial consultation) who presented from home w/ several day c/o progressive SOB w/ orthopnea, PND, weight gain, and bilateral LE edema. Pulmonary hypertension worrisome and will need further evaluation/management. Recommendations: * Continue on telemetry with strict inputs/outputs and daily weights. * Continue IV furosemide 40 mg twice daily and reassess the need for further IV diuresis in the a.m. * Continue DVT prophylaxis. Continue telemetry? Yes
[2017-09-04 23:04] VITALS: BP 124/86
[2017-09-05 07:15] VITALS: BP 156/68
--- NOTE | 2017-09-05 07:49 | PN- Housestaff ---
Bria LOPEZ,Cabrera 09/05/17 0749: Subjective Follow-up For: CHF exacerbation Pulmonary hypertension Tele-Events Since Last Visit: Signs of dementia 40s-70s Subjective: Patient was seen and examined at bedside. She was resting comfortably. She had no acute events overnight. She is feeling well today and was able to be weaned off of supplemental O2 Review of Systems Constitutional: Reports: no symptoms. EENTM: Reports: no symptoms. Cardiovascular: Denies: chest pain, palpitations. Respiratory: Denies: cough, short of breath. Gastrointestinal: Reports: no symptoms. Genitourinary: Reports: no symptoms. Musculoskeletal: Reports: no symptoms. Objective Last 24 Hrs of Vital Signs/I&O Vital Signs Date Time Temp Pulse Resp B/P B/P Pulse O2 O2 Flow FiO2 Mean Ox Delivery Rate 09/05 0715 98.4 69 12 156/68 98 Nasal 1.0L Cannula 09/05 0000 93 Nasal 1.0L Cannula 09/04 2304 97.9 53 16 124/86 91 09/04 1600 Nasal 1.0L Cannula 09/04 1454 98.3 64 20 112/58 93 Nasal 1.0L Cannula 09/04 0905 80 134/82 09/04 0905 80 134/82 09/04 0904 80 132/84 09/04 0800 92 Nasal 1.0L Cannula Intake & Output 09/05 0800 09/05 0000 09/04 1600 Intake Total 50 50 625 Output Total 350 500 820 Balance -300 -450 -195 Intake, IV 25 Intake, Oral 50 50 600 Output, Urine 350 500 820 Patient 213 lb Weight Physical Exam General Appearance: Alert, Oriented X3, Cooperative, No Acute Distress Skin Temp/Moisture Exam: Warm/Dry Sepsis Skin Exam (color): Normal for Ethnicity HEENT: Atraumatic Cardiovascular: Regular Rate, Normal S1, Normal S2 Lungs: Clear to Auscultation Abdomen: Normal Bowel Sounds, Soft, No Tenderness Neurological: Normal Speech, Normal Tone, Sensation Intact Extremities: No Clubbing, No Cyanosis, 1+ BLE edema Current Medications: Current Medications Sig/Chuck Start time Last Medication Dose Route Stop Time Status Admin Allopurinol 300 MG DAILY 09/01 1609 AC 09/04 PO 09 Amlodipine Besylate 10 MG DAILY 09/02 899 AC 09/04 PO 09 Aspirin 81 MG DAILY 09/02 899 AC 09/04 PO 0904 Atorvastatin Calcium 20 MG QPM 09/01 2099 AC 09/04 PO 2024 Cholecalciferol 2,000 IU DAILY 09/02 0900 AC 09/04 PO 09 Furosemide 40 MG 7:30 AM, & 4:30 PM 09/02 0730 AC 09/04 IV 1558 Gabapentin 300 MG BID 09/01 2099 AC 09/04 PO 2023 Heparin Sodium 5,000 UNIT Q8 09/01 2200 AC (Porcine) SC Insulin Aspart 0 AT BEDTIME 09/01 2100 AC SC Insulin Aspart 0 TIDAC 09/01 1700 AC SC Lidocaine 1 PAT DAILY 09/01 1923 AC 09/02 EXT 1823 Lisinopril 10 MG BID 09/01 2099 AC 09/04 PO 2024 Loperamide HCl 2 MG Q6P PRN 09/02 1415 AC 09/02 PO 1420 Metoprolol Tartrate 100 MG BID 09/01 2099 AC 09/04 PO 2023 Nitroglycerin 0.4 MG DAILY 09/02 0900 AC 09/04 TOP 0906 Ticagrelor 90 MG BID 09/01 2099 AC 09/04 PO 2023 Last 24 Hrs of Lab/Carlo Results Last 24 Hrs of Labs/Mics: Laboratory Tests 09/05/17 0715: Sodium Pending, Potassium Pending, Chloride Pending, Carbon Dioxide Pending, Anion Gap Pending, BUN Pending, Creatinine Pending, BUN/Creatinine Ratio Pending , CBC w Diff Pending, WBC Pending, RBC Pending, Hgb Pending, Hct Pending, MCV Pending, MCH Pending, MCHC Pending, RDW Pending, Plt Count Pending, MPV Pending Assessment/Plan Assessment: Patient is a 76-year-old female with a PMH significant for CAD status post multiple CABGs and PCIs with stent placement, significant cardiac family history , HTN, IBS, chronic back pain, borderline diabetes mellitus, who presents complaining of worsening dyspnea on exertion, and leg swelling. #CHF exacerbation Lower extremity Doppler negative for DVT, CTA chest negative for PE. -stable for discharge today -convert to PO lasix 40 mg daily -Strict I's and O's and daily weights -successfully weaned off of O2 -recommended to follow up with / [facility] after discharge #Pulmonary htn -Consulted Dr. Vasques who will see patient in his clinic to establish pulmonary care for COPD, CHARLEE and pulmonary HTN #Chronic medical problems -Continue home medication regimen, with NovoLog sliding scale substituted for metformin Diet: Diabetic diet, sodium restriction DVT prophylaxis: subcutaneous heparin, ALPS CODE STATUS: Full code Problem List: 1. Pulmonary hypertension 2. CHF exacerbation Pain Ratin Pain Location: none Pain Goal: Remain pain free Pain Plan: pain pathway Tomorrow's Labs & Rationales: none Viridiana Gaspar MD 09/05/17 1312: Attending MD Review Statement Attending Statement Attending MD Statement: examined this patient, discuss w/resident/PA/[employer] ATTENDANT, agreed w/resident/PA/[employer] ATTENDANT, reviewed EMR data (avail) Attending Assessment/Plan: 76F PMH CAD status post multiple CABGs and PCIs with stent placement, significant cardiac family history, HTN, IBS, chronic back pain admitted with dyspnea with exertion, b/l LE edema, bibasilar crackles on lung exam and mildly elevated BNP in the setting of acute on chronic systolic CHF. Better today, breathing at baseline, back on room air. 1. Acute on chronic systolic CHF 2. Dyspnea on exertion 3. History of CAD s/p CABG Plan - Continue on telemetry - Lasix 40mg IV BID - Cardiology consult - Continue home medications - I/O, daily weights - DVT PPx - Potential discharge today or tomorrow pending cardiology recommendations
[2017-09-05 08:02] LABS: ABSOLUTE BASOPHIL COUNT 0 /CUMM (0.0-0.2); ABSOLUTE EOSINOPHIL COUNT 0.2 /CUMM (0.0-0.7); ABSOLUTE GRANULOCYTE CT 6.1 /CUMM (1.4-6.5); ABSOLUTE LYMPH COUNT 2.4 /CUMM (1.2-3.4); ABSOLUTE MONOCYTE COUNT 0.7 /CUMM (0.10-0.60); BASOPHIL % 0.4 % (0.0-2.0); EOSINOPHIL % 2.4 % (0-5); GRANULOCYTE % 64.5 % (42.2-75.2); HEMATOCRIT 31.1 % (37-47); MEAN CORPUSCULAR HGB 30.2 PG (27.0-31.0); MEAN CORPUSCULAR HGB CONC 32.6 G/DL (33.0-37.0); MEAN CORPUSCULAR VOLUME 92.6 FL (81.0-99.0); PLATELET COUNT 303 /CUMM (130-400); RBC DISTRIBUTION WIDTH 16.4 % (11.5-14.5); RED BLOOD CELL CT 3.36 /CUMM (4.20-5.40); WHITE BLOOD CELL COUNT 9.4 /CUMM (4.8-10.8)
[2017-09-05] MEDS ORDERED: FUROSEMIDE40 M1 PO (11:54)
--- NOTE | 2017-09-05 11:57 | Patient Discharge Instructions ---
Discharge Instructions General Discharge Information You were seen/treated for: CHF Special Instructions: Please follow-up with Dr. Mcguire within 1 week of discharge. Please follow-up with your primary care physician within one week of discharge. Please follow-up with pulmonology, Dr. Noel, within 1 week of discharge. We have provided you with a referral. We have changed her dose of Lasix, please take all medications as directed. Please call your doctor or return to the ER if she should experience any shortness of breath, chest pain, worsening leg swelling, lightheadedness, loss of consciousness. Diet Recommended Diet: Heart Healthy Acute Coronary Syndrome Inclusion Criteria At DC or during hospital stay patient has or had the following: ACS DIAGNOSIS No Discharge Core Measures Meds if any: Prescribed or Continued at Discharge Meds if any: NOT Prescribed or Continued at Discharge Congestive Heart Failure Inclusion Criteria At DC or during hospital stay patient has or had the following: CHF DIAGNOSIS Yes Discharge Core Measures Meds if any: Prescribed or Continued at Discharge LÁZARO/ARB for EF <40% Yes Meds if any: NOT Prescribed or Continued at Discharge Cerebrovascular accident Inclusion Criteria At DC or during hospital stay patient has or had the following: CVA/TIA Diagnosis No Discharge Core Measures Meds if any: Prescribed or Continued at Discharge Meds if any: NOT Prescribed or Continued at Discharge Venous thromboembolism Inclusion Criteria VTE Diagnosis No VTE Type NONE VTE Confirmed by (Test) NONE Discharge Core Measures - Per Current guidelines, there needs to be overlap - treatment for the first 5 days of Warfarin therapy. - If discharged on Warfarin prior to 5 days of - overlap therapy, the patient will need to be - assessed for post discharge needs including - *Post discharge parental anticoagulation - *Warfarin and/or parental anticoagulation education - *Follow up date to check INR post discharge At least 5 days overlap therapy as Inpatient No Meds if any: Prescribed or Continued at Discharge Note: Overlap Therapy is Warfarin and Anticoagulant Meds if any: NOT Prescribed or Continued at Discharge
[2017-09-05 15:08] VITALS: BP 120/68
== END 2017-09-05 15:50 | DRG 293 ==
LOC: ERH 11:46 → 1NO 16:32 → ERHI 16:32 → ENRESERV 19:09 → ENTRNSPT 22:05 → 1NO 22:26 → CMPTRNSPT 23:04 → 1NO 09-02 07:47 → ENPENDDIS 09-05 14:42 → ENTRNSPT 09-05 15:28 → CMPTRNSPT 09-05 15:32 → 1NO 09-05 15:50
PROVIDERS: Dermatology; Physician Assistant Medical; Student in an Organized Health Care Education/Training Program
DX: I11.0 Hypertensive heart disease with heart failure (principal); E66.01 Morbid (severe) obesity due to excess calories; Z95.1 Presence of aortocoronary bypass graft; I27.20 Pulmonary hypertension, unspecified; I25.10 Atherosclerotic heart disease of native coronary artery without angina pectoris; I50.23 Acute on chronic systolic (congestive) heart failure; E83.42 Hypomagnesemia; E87.6 Hypokalemia; Z68.39 Body mass index [BMI] 39.0-39.9, adult; Z91.11 Patient's noncompliance with dietary regimen; Z98.61 Coronary angioplasty status; R73.03 Prediabetes; Z90.710 Acquired absence of both cervix and uterus; Z90.49 Acquired absence of other specified parts of digestive tract; Z79.84 Long term (current) use of oral hypoglycemic drugs; Z79.82 Long term (current) use of aspirin; Z79.891 Long term (current) use of opiate analgesic; Z79.51 Long term (current) use of inhaled steroids
CPT/HCPCS: 1NP; 36415; 36592; 71045; 71046; 80307; 81001; 82436; 93005; 93010; 93306; 93970; 96374; 99291; J1644; J1650; J1940; J3490